=== PATIENT | female | born 1995 | race Caucasian/White ===

== ENCOUNTER 2021-09-24 00:27 | Inpatient (IN) | payer OTHER ==
[2021-09-24 02:29] LABS: INR 1.15 (0.83-1.09); PROTHROMBIN TIME (PATIENT) 13.3 SEC (9.7-13.0)
[2021-09-24 02:31] LABS: ACTIVATED PTT 37.6 SECONDS (25.2-36.5)
[2021-09-24 02:33] LABS: VENOUS BASE EXCESS -5.9 mmol/L (-2-2); VENOUS O2 SATURATION 28.8 % (70-80); VENOUS PCO2 41.6 mmHg (38-52); VENOUS PH 7.303 (7.310-7.410)
[2021-09-24 02:35] LABS: HEMOGLOBIN 7.9 GM/dL (10.7-15.3); MCH 32.3 pg (25.7-33.7); MCHC 31.7 g/dl (32.0-36.0); MEAN PLT VOLUME 6.6 fl (7.5-11.1); PLATELET COUNT 563 10^3/uL (134-434); RBC 2.46 M/mm3 (3.60-5.2); RDW 18.4 % (11.6-15.6); WHITE BLOOD COUNT 10.9 K/mm3 (4.0-10.0)
[2021-09-24 02:37] LABS: CALCIUM 9.2 mg/dL (8.5-10.1)
[2021-09-24 02:38] LABS: ADD RBC MORPHOLOGY YES
[2021-09-24 02:41] LABS: CREATININE 0.7 mg/dL (0.55-1.3)
[2021-09-24 02:43] LABS: BILIRUBIN,TOTAL 4.7 mg/dL (0.2-1)
[2021-09-24] MEDS ORDERED: SODIUM CHLORIDE 0.9% 500 ML INFUS.BAG IV ONE (02:49)
[2021-09-24 03:03] LABS: ANISOCYTOSIS 2+; MACROCYTOSIS 1+; OVALOCYTE 1+; TEAR DROP CELLS 1+
[2021-09-24 03:16] LABS: LACTIC ACID 8.1 mmol/L (0.4-2.0)
[2021-09-24 03:32] VITALS: BMI 44.2
[2021-09-24 03:36] LABS: BILIRUBIN,DIRECT 2.9 mg/dL (0.0-0.2)
[2021-09-24] MEDS ORDERED: ALBUTEROL SO4 2.5/IPRATROPIUM 0.5 INH SOL 3 ML VIAL.NEB. NEB ONE (04:11)
[2021-09-24] MEDS ORDERED: chlordiazePOXIDE HCL 25 MG CAPSULE PO ONE (06:11)
[2021-09-24] MEDS ORDERED: chlordiazePOXIDE HCL 25 MG CAPSULE ONE (06:17)
[2021-09-24 07:07] LABS: LACTIC ACID 6.5 mmol/L (0.4-2.0)
[2021-09-24 07:58] LABS: PH,URINE 6.5 (5.0-8.0); URINE APPEARANCE CLEAR; URINE BILIRUBIN MODERATE (NEGATIVE); URINE COLOR DK YELLOW; URINE GLUCOSE (UA) 1+ (NEGATIVE); URINE KETONE NEGATIVE (NEGATIVE)
[2021-09-24 07:59] LABS: URINE LEUK ESTERASE NEGATIVE (NEGATIVE); URINE NITRITE NEGATIVE (NEGATIVE); URINE PROTEIN TRACE (NEGATIVE)
[2021-09-24 08:50] LABS: METHADONE, UR NEGATIVE (NEGATIVE); OPIATES, URI NEGATIVE (NEGATIVE); PHENCYCLIDINE,URINE NEGATIVE (NEGATIVE); URINE BARBITURATES NEGATIVE (NEGATIVE); URINE BENZODIAZEPINES NEGATIVE (NEGATIVE)
[2021-09-24 08:53] LABS: COCAINE, UR NEGATIVE (NEGATIVE); URINE AMPHETAMINES NEGATIVE (NEGATIVE)
[2021-09-24] MEDS ORDERED: LORazepam 1 MG TABLET PO PRN (09:08)
[2021-09-24] MEDS: FOLIC ACID 1 MG TABLET (FP) PO SCH (09:32)
[2021-09-24] MEDS: THIAMINE HCL 100 MG TABLET (FP) PO SCH (09:32)
[2021-09-24] MEDS: SODIUM CHLORIDE 1,000 ML IV SCH (09:35)
[2021-09-24] MEDS ORDERED: PrednisoLONE 15 MG/5 ML UNIT-DOSE CUP PO SCH (10:00)
[2021-09-24] MEDS: ENOXAPARIN NA (PORCINE) 40 MG/0.4 ML DISP.SYRIN SQ SCH (10:55)
[2021-09-24] MEDS: LORazepam 1 MG TABLET PO SCH ×3 (11:49→22:58)
[2021-09-24 12:20] LABS: ALBUMIN 2.7 g/dl (3.4-5.0)
[2021-09-24 12:22] LABS: BILIRUBIN,DIRECT 3.3 mg/dL (0.0-0.2)
[2021-09-24 12:24] LABS: BILIRUBIN,TOTAL 4.3 mg/dL (0.2-1)
[2021-09-24 12:25] LABS: TOT PROT 7.1 g/dl (6.4-8.2)
[2021-09-24 14:31] LABS: INR 1.29 (0.83-1.09); PROTHROMBIN TIME (PATIENT) 14.9 SEC (9.7-13.0)
[2021-09-24 14:43] LABS: ALBUMIN 2.5 g/dl (3.4-5.0)
[2021-09-24 14:46] LABS: BILIRUBIN,DIRECT 3.3 mg/dL (0.0-0.2)
[2021-09-24 14:48] LABS: BILIRUBIN,TOTAL 4.2 mg/dL (0.2-1); TOT PROT 6.4 g/dl (6.4-8.2)
[2021-09-25] MEDS: LORazepam 1 MG TABLET PO SCH ×4 (05:36→22:25)
[2021-09-25 08:44] LABS: HEMATOCRIT 20.6 % (32.4-45.2); MCH 32.6 pg (25.7-33.7); MCHC 31.8 g/dl (32.0-36.0); MEAN CELL VOLUME 102.5 fl (80-96); MEAN PLT VOLUME 6.6 fl (7.5-11.1); PLATELET COUNT 425 10^3/uL (134-434); RBC 2.01 M/mm3 (3.60-5.2); RDW 18.7 % (11.6-15.6); WHITE BLOOD COUNT 10.3 K/mm3 (4.0-10.0)
[2021-09-25 09:13] LABS: CALCIUM 8.4 mg/dL (8.5-10.1)
[2021-09-25 09:14] LABS: ALBUMIN 2.5 g/dl (3.4-5.0); BLOOD UREA NITROGEN 7.8 mg/dL (7-18)
[2021-09-25 09:17] LABS: CREATININE 0.5 mg/dL (0.55-1.3)
[2021-09-25 09:18] LABS: TOT PROT 6.4 g/dl (6.4-8.2)
[2021-09-25 09:48] LABS: HEMOGLOBIN 6.5 GM/dL (10.7-15.3)
[2021-09-25 10:09] LABS: RETICULOCYTES 3.62 % (0.5-1.5)
[2021-09-25] MEDS: FOLIC ACID 1 MG TABLET (FP) PO SCH (12:15)
[2021-09-25] MEDS: THIAMINE HCL 100 MG TABLET (FP) PO SCH (12:15)
[2021-09-25] MEDS: ENOXAPARIN NA (PORCINE) 40 MG/0.4 ML DISP.SYRIN SQ SCH (12:15)
[2021-09-25 13:38] LABS: INR 1.16 (0.83-1.09); PROTHROMBIN TIME (PATIENT) 13.4 SEC (9.7-13.0)
[2021-09-25 14:00] LABS: LACTIC ACID 2.8 mmol/L (0.4-2.0)
[2021-09-25] MEDS: SODIUM CHLORIDE 1,000 ML IV SCH (18:04)
[2021-09-25 21:58] LABS: HEMATOCRIT 24.1 % (32.4-45.2); HEMOGLOBIN 7.8 GM/dL (10.7-15.3); MCH 32.4 pg (25.7-33.7); MCHC 32.4 g/dl (32.0-36.0); MEAN CELL VOLUME 99.8 fl (80-96); MEAN PLT VOLUME 6.6 fl (7.5-11.1); PLATELET COUNT 405 10^3/uL (134-434); RBC 2.41 M/mm3 (3.60-5.2); RDW 19.5 % (11.6-15.6); WHITE BLOOD COUNT 10.4 K/mm3 (4.0-10.0)
[2021-09-25 22:45] LABS: ANISOCYTOSIS 2+
[2021-09-25 22:46] LABS: PLATELET ESTIMATE ADEQUATE
[2021-09-26] MEDS: LORazepam 1 MG TABLET PO SCH ×4 (05:53→22:36)
[2021-09-26 07:27] LABS: HEMATOCRIT 22.5 % (32.4-45.2); HEMOGLOBIN 7.2 GM/dL (10.7-15.3); MCH 31.9 pg (25.7-33.7); MCHC 32.2 g/dl (32.0-36.0); MEAN CELL VOLUME 99.2 fl (80-96); MEAN PLT VOLUME 6.6 fl (7.5-11.1); PLATELET COUNT 358 10^3/uL (134-434); RBC 2.27 M/mm3 (3.60-5.2); RDW 19.5 % (11.6-15.6); WHITE BLOOD COUNT 11.9 K/mm3 (4.0-10.0)
[2021-09-26 07:39] LABS: ALBUMIN 2.6 g/dl (3.4-5.0); BLOOD UREA NITROGEN 8.8 mg/dL (7-18); CALCIUM 8.2 mg/dL (8.5-10.1); MAGNESIUM 2.3 mg/dL (1.8-2.4)
[2021-09-26 07:42] LABS: CREATININE 0.5 mg/dL (0.55-1.3); PHOSPHOROUS 2.4 mg/dL (2.5-4.9); TOT PROT 6.7 g/dl (6.4-8.2)
[2021-09-26] MEDS: SODIUM CHLORIDE 1,000 ML IV SCH (08:45)
[2021-09-26] MEDS: FOLIC ACID 1 MG TABLET (FP) PO SCH (09:03)
[2021-09-26] MEDS: THIAMINE HCL 100 MG TABLET (FP) PO SCH (09:03)
[2021-09-26 10:18] LABS: ANISOCYTOSIS 1+; MACROCYTOSIS 1+; TARGET CELLS 1+
[2021-09-26] MEDS ORDERED: NAPH,MB-DB/K PH,MBDB POWDER PACKET PO ONE (11:16)
[2021-09-26] MEDS ORDERED: POTASSIUM CHLORIDE ORAL LIQUID 20 MEQ/15 ML PO ONE (11:16)
[2021-09-26] MEDS: CYANOCOBALAMIN (VITAMIN B-12) 1000 MCG/1 ML VIAL IM SCH (12:15)
[2021-09-26 14:56] LABS: BILIRUBIN,DIRECT 3.8 mg/dL (0.0-0.2)
[2021-09-26 16:34] LABS: HEMOGLOBIN 7.5 GM/dL (10.7-15.3); MCH 32.4 pg (25.7-33.7); MCHC 32.7 g/dl (32.0-36.0); MEAN PLT VOLUME 6.3 fl (7.5-11.1); PLATELET COUNT 329 10^3/uL (134-434); RBC 2.32 M/mm3 (3.60-5.2); RDW 19.8 % (11.6-15.6); WHITE BLOOD COUNT 10.3 K/mm3 (4.0-10.0)
[2021-09-26 16:39] LABS: ADD RBC MORPHOLOGY YES
[2021-09-26 17:45] LABS: ANISOCYTOSIS 2+; MACROCYTOSIS 2+; TEAR DROP CELLS 1+
[2021-09-27] MEDS ORDERED: LORazepam 0.5 MG TABLET PO PRN
[2021-09-27] MEDS: SODIUM CHLORIDE 1,000 ML IV SCH ×2 (00:26→07:46)
[2021-09-27] MEDS: LORazepam 0.5 MG TABLET PO SCH ×4 (04:48→22:50)
[2021-09-27 07:19] LABS: HEMATOCRIT 21.6 % (32.4-45.2); MCH 31.8 pg (25.7-33.7); MCHC 32.1 g/dl (32.0-36.0); MEAN CELL VOLUME 99.1 fl (80-96); MEAN PLT VOLUME 6.3 fl (7.5-11.1); PLATELET COUNT 308 10^3/uL (134-434); RBC 2.18 M/mm3 (3.60-5.2); RDW 19.7 % (11.6-15.6); WHITE BLOOD COUNT 10.4 K/mm3 (4.0-10.0)
[2021-09-27 07:22] LABS: INR 1.15 (0.83-1.09); PROTHROMBIN TIME (PATIENT) 13.3 SEC (9.7-13.0)
[2021-09-27 07:41] LABS: ALBUMIN 2.4 g/dl (3.4-5.0)
[2021-09-27 07:44] LABS: BILIRUBIN,DIRECT 3.3 mg/dL (0.0-0.2)
[2021-09-27 07:45] LABS: TOT PROT 6.2 g/dl (6.4-8.2)
[2021-09-27 07:46] LABS: BILIRUBIN,TOTAL 4.2 mg/dL (0.2-1)
[2021-09-27 07:49] LABS: ALBUMIN 2.5 g/dl (3.4-5.0); BLOOD UREA NITROGEN 7.5 mg/dL (7-18); CALCIUM 8.3 mg/dL (8.5-10.1); MAGNESIUM 2.3 mg/dL (1.8-2.4)
[2021-09-27 07:52] LABS: BILIRUBIN,DIRECT 3.3 mg/dL (0.0-0.2); CREATININE 0.4 mg/dL (0.55-1.3); PHOSPHOROUS 2.3 mg/dL (2.5-4.9)
[2021-09-27 07:53] LABS: BILIRUBIN,TOTAL 4.2 mg/dL (0.2-1)
[2021-09-27 07:54] LABS: TOT PROT 6.2 g/dl (6.4-8.2)
[2021-09-27 08:43] LABS: ANISOCYTOSIS 3+; MACROCYTOSIS 0
[2021-09-27] MEDS: CYANOCOBALAMIN (VITAMIN B-12) 1000 MCG/1 ML VIAL IM SCH (09:10)
[2021-09-27] MEDS: FOLIC ACID 1 MG TABLET (FP) PO SCH (09:10)
[2021-09-27] MEDS: THIAMINE HCL 100 MG TABLET (FP) PO SCH (09:10)
[2021-09-27] MEDS ORDERED: NAPH,MB-DB/K PH,MBDB POWDER PACKET PO ONE (10:21)
[2021-09-27 15:07] LABS: EPI CELLS 20 /uL (0-25.1); HYALINE CASTS 2 /uL (0-3.1); URINE APPEARANCE CLOUDY; URINE BILIRUBIN 3+ (NEGATIVE); URINE COLOR DK YELLOW; URINE GLUCOSE (UA) NEGATIVE (NEGATIVE); URINE KETONE NEGATIVE (NEGATIVE); URINE LEUK ESTERASE 1+ (NEGATIVE); URINE NITRITE POSITIVE (NEGATIVE); URINE PROTEIN 1+ (NEGATIVE); URINE WBC 46 /uL (0-25.8)
[2021-09-27 15:14] LABS: URINE BACTERIA 158 /uL (0-1359); URINE RBC 15 /uL (0-23.9)
[2021-09-27 16:26] LABS: BASO % 1.1 % (0-2.0); EOS % 3.8 % (0-4.5); HEMATOCRIT 22.8 % (32.4-45.2); HEMOGLOBIN 7.1 GM/dL (10.7-15.3); LYMPH % 11.8 % (8-40); MCH 31.4 pg (25.7-33.7); MCHC 31.4 g/dl (32.0-36.0); MEAN CELL VOLUME 99.9 fl (80-96); MEAN PLT VOLUME 7.3 fl (7.5-11.1); MONO % 8.9 % (3.8-10.2); NEUT % 74.4 % (42.8-82.8); RBC 2.28 M/mm3 (3.60-5.2); RDW 19.7 % (11.6-15.6); WHITE BLOOD COUNT 12.1 K/mm3 (4.0-10.0)
[2021-09-27 17:24] LABS: ANISOCYTOSIS 2+; MACROCYTOSIS 1+; TARGET CELLS 1+
[2021-09-27 17:27] LABS: PLATELET COUNT 340 10^3/uL (134-434); PLATELET ESTIMATE ADEQUATE
[2021-09-27 20:28] LABS: URIC ACID 2.8 mg/dL (2.6-7.2)
[2021-09-28] MEDS ORDERED: ALBUTEROL SO4 HFA INHALER IH PRN (04:25)
[2021-09-28] MEDS ORDERED: LORazepam 0.5 MG TABLET PO ONE (05:00)
[2021-09-28] MEDS: SODIUM CHLORIDE 1,000 ML IV SCH ×2 (05:11→09:10)
[2021-09-28 07:36] LABS: HEMATOCRIT 21.4 % (32.4-45.2); MCH 31.5 pg (25.7-33.7); MCHC 31.4 g/dl (32.0-36.0); MEAN CELL VOLUME 100.4 fl (80-96); MEAN PLT VOLUME 6.7 fl (7.5-11.1); PLATELET COUNT 324 10^3/uL (134-434); RBC 2.13 M/mm3 (3.60-5.2); RDW 19.3 % (11.6-15.6); WHITE BLOOD COUNT 12.6 K/mm3 (4.0-10.0)
[2021-09-28 07:46] LABS: HEMOGLOBIN 6.7 GM/dL (10.7-15.3)
[2021-09-28 08:08] LABS: CREATININE 0.5 mg/dL (0.55-1.3)
[2021-09-28 08:10] LABS: ALBUMIN 2.6 g/dl (3.4-5.0); TOT PROT 6.5 g/dl (6.4-8.2)
[2021-09-28 08:11] LABS: BLOOD UREA NITROGEN 5.5 mg/dL (7-18); CALCIUM 8.5 mg/dL (8.5-10.1)
[2021-09-28 08:12] LABS: MAGNESIUM 2.3 mg/dL (1.8-2.4)
[2021-09-28 08:13] LABS: BILIRUBIN,DIRECT 3.1 mg/dL (0.0-0.2); PHOSPHOROUS 2.4 mg/dL (2.5-4.9)
[2021-09-28] MEDS ORDERED: DEXTROSE 5%-WATER 100 ML IVPB ONE (08:36)
[2021-09-28 08:48] LABS: ANISOCYTOSIS 2+; MACROCYTOSIS 0
[2021-09-28] MEDS ORDERED: NAPH,MB-DB/K PH,MBDB POWDER PACKET PO ONE (09:00)
[2021-09-28] MEDS: CEFTRIAXONE 2 GM in DEXTROSE 5%-WATER 2 GM/100 ML BAG IVPB SCH (09:05)
[2021-09-28] MEDS: FOLIC ACID 1 MG TABLET (FP) PO SCH (09:10)
[2021-09-28] MEDS: THIAMINE HCL 100 MG TABLET (FP) PO SCH (09:10)
[2021-09-28 09:31] LABS: INR 1.15 (0.83-1.09); PROTHROMBIN TIME (PATIENT) 13.2 SEC (9.7-13.0)
[2021-09-28] MEDS: CYANOCOBALAMIN (VITAMIN B-12) 1000 MCG/1 ML VIAL IM SCH (11:08)
[2021-09-28 18:11] LABS: HEMATOCRIT 25.8 % (32.4-45.2); HEMOGLOBIN 8.2 GM/dL (10.7-15.3); MCH 31.4 pg (25.7-33.7); MCHC 31.8 g/dl (32.0-36.0); MEAN CELL VOLUME 98.5 fl (80-96); MEAN PLT VOLUME 6.7 fl (7.5-11.1); PLATELET COUNT 368 10^3/uL (134-434); RBC 2.62 M/mm3 (3.60-5.2); RDW 18.2 % (11.6-15.6); WHITE BLOOD COUNT 12.4 K/mm3 (4.0-10.0)
[2021-09-28] MEDS ORDERED: LORazepam 0.5 MG TABLET PO PRN (18:46)
[2021-09-28 19:23] LABS: ANISOCYTOSIS 2+; MACROCYTOSIS 1+; PLATELET ESTIMATE NORMAL
[2021-09-29] MEDS ORDERED: IBUPROFEN 800 MG/8 ML IJ IVPB ONE (00:02)
[2021-09-29 00:25] LABS: PHENCYCLIDINE,URINE NEGATIVE (NEGATIVE)
[2021-09-29 00:26] LABS: COCAINE, UR NEGATIVE (NEGATIVE); METHADONE, UR NEGATIVE (NEGATIVE); OPIATES, URI NEGATIVE (NEGATIVE); URINE BARBITURATES NEGATIVE (NEGATIVE)
[2021-09-29 00:48] LABS: URINE AMPHETAMINES NEGATIVE (NEGATIVE); URINE BENZODIAZEPINES POSITIVE (NEGATIVE)
[2021-09-29 08:42] LABS: HEMATOCRIT 24.7 % (32.4-45.2); MCH 31.7 pg (25.7-33.7); MCHC 32.3 g/dl (32.0-36.0); MEAN CELL VOLUME 98.1 fl (80-96); MEAN PLT VOLUME 6.7 fl (7.5-11.1); PLATELET COUNT 350 10^3/uL (134-434); RBC 2.51 M/mm3 (3.60-5.2); RDW 17.8 % (11.6-15.6); WHITE BLOOD COUNT 11.9 K/mm3 (4.0-10.0)
[2021-09-29 08:48] LABS: INR 1.16 (0.83-1.09); PROTHROMBIN TIME (PATIENT) 13.4 SEC (9.7-13.0)
[2021-09-29] MEDS ORDERED: ALBUTEROL SO4 2.5/IPRATROPIUM 0.5 INH SOL 3 ML VIAL.NEB. NEB ONE (08:55)
[2021-09-29 09:14] LABS: ALBUMIN 2.5 g/dl (3.4-5.0); CALCIUM 9.1 mg/dL (8.5-10.1); CREATININE 0.4 mg/dL (0.55-1.3)
[2021-09-29 09:16] LABS: BILIRUBIN,TOTAL 3.6 mg/dL (0.2-1); TOT PROT 6.2 g/dl (6.4-8.2)
[2021-09-29 09:17] LABS: BILIRUBIN,DIRECT 2.8 mg/dL (0.0-0.2); PHOSPHOROUS 2.8 mg/dL (2.5-4.9)
[2021-09-29 09:19] LABS: MAGNESIUM 2.4 mg/dL (1.8-2.4)
[2021-09-29] MEDS ORDERED: DEXTROSE 5%-WATER 100 ML IVPB ONE (09:25)
[2021-09-29] MEDS: THIAMINE HCL 100 MG TABLET (FP) PO SCH (09:53)
[2021-09-29] MEDS: CEFTRIAXONE 2 GM in DEXTROSE 5%-WATER 2 GM/100 ML BAG IVPB SCH (09:53)
[2021-09-29] MEDS: CYANOCOBALAMIN (VITAMIN B-12) 1000 MCG/1 ML VIAL IM SCH (09:54)
[2021-09-29] MEDS: FOLIC ACID 1 MG TABLET (FP) PO SCH (09:54)
[2021-09-29 09:57] LABS: HIV INTERPRETATION NEGATIVE (NEGATIVE)
[2021-09-29 10:17] LABS: ANISOCYTOSIS 2+; MACROCYTOSIS 0
[2021-09-29 10:50] LABS: ARTERIAL BLD GAS O2 SATURATION 95.6 % (95-98); ARTERIAL BLOOD GAS BASE EXCESS 0.7 mmol/L (-2-2); ARTERIAL BLOOD GAS PO2 74.7 mmHg (80-100); ARTERIAL BLOOD GAS pH 7.443 (7.350-7.450)
[2021-09-29 10:51] LABS: ALLENS TEST POSITIVE
[2021-09-29] MEDS ORDERED: FUROSEMIDE 40 MG/4 ML INJECTABLE VIAL IVPUSH ONE (13:19)
[2021-09-29] MEDS ORDERED: AZITHROMYCIN 250 MG TABLET PO ONE (13:19)
[2021-09-30] MEDS ORDERED: MELATONIN 5 MG TABLETS PO ONE (02:12)
[2021-09-30 06:55] LABS: HEMATOCRIT 24.8 % (32.4-45.2); HEMOGLOBIN 7.8 GM/dL (10.7-15.3); MCHC 31.4 g/dl (32.0-36.0); MEAN CELL VOLUME 98.6 fl (80-96); MEAN PLT VOLUME 7.1 fl (7.5-11.1); PLATELET COUNT 422 10^3/uL (134-434); RBC 2.51 M/mm3 (3.60-5.2); RDW 17.5 % (11.6-15.6)
[2021-09-30 07:41] LABS: ALBUMIN 2.6 g/dl (3.4-5.0); BLOOD UREA NITROGEN 7.5 mg/dL (7-18); CALCIUM 9.2 mg/dL (8.5-10.1)
[2021-09-30 07:44] LABS: CREATININE 0.4 mg/dL (0.55-1.3)
[2021-09-30 07:46] LABS: BILIRUBIN,TOTAL 3.4 mg/dL (0.2-1); TOT PROT 6.3 g/dl (6.4-8.2)
[2021-09-30] MEDS ORDERED: DEXTROSE 5%-WATER 100 ML IVPB ONE (09:27)
[2021-09-30] MEDS: CYANOCOBALAMIN (VITAMIN B-12) 1000 MCG/1 ML VIAL IM SCH (09:43)
[2021-09-30] MEDS: FOLIC ACID 1 MG TABLET (FP) PO SCH (09:43)
[2021-09-30] MEDS: AZITHROMYCIN 250 MG TABLET PO SCH (09:43)
[2021-09-30] MEDS: CEFTRIAXONE 2 GM in DEXTROSE 5%-WATER 2 GM/100 ML BAG IVPB SCH (09:43)
[2021-09-30] MEDS: THIAMINE HCL 100 MG TABLET (FP) PO SCH (09:43)
[2021-09-30 10:13] LABS: ANISOCYTOSIS 1+; MACROCYTOSIS 1+
[2021-09-30 17:10] LABS: FREE KAPPA,SERUM 13.6 mg/L (3.3-19.4)
[2021-09-30] MEDS ORDERED: FUROSEMIDE 40 MG/4 ML INJECTABLE VIAL IVPUSH ONE (17:22)
[2021-09-30] MEDS ORDERED: AMPICILLIN NA/SULBACTAM NA 3 GM in SODIUM CHLORIDE 100 ML IVPB SCH (17:30)
[2021-09-30] MEDS ORDERED: AMPICILLIN NA/SULBACTAM NA 3 GM VIAL ONE (19:05)
[2021-09-30] MEDS ORDERED: SODIUM CHLORIDE 100 ML IVPB ONE (19:05)
[2021-09-30] MEDS: AMPICILLIN NA/SULBACTAM NA 3 GM in SODIUM CHLORIDE 100 ML IVPB SCH (19:07)
[2021-10-01] MEDS ORDERED: AMPICILLIN NA/SULBACTAM NA 3 GM VIAL ONE ×4 (02:50→21:08)
[2021-10-01] MEDS ORDERED: SODIUM CHLORIDE 100 ML IVPB ONE ×4 (02:51→21:08)
[2021-10-01] MEDS: AMPICILLIN NA/SULBACTAM NA 3 GM in SODIUM CHLORIDE 100 ML IVPB SCH ×4 (02:55→21:32)
[2021-10-01 07:27] LABS: BASO % 0.8 % (0-2.0); HEMATOCRIT 25.5 % (32.4-45.2); HEMOGLOBIN 8.1 GM/dL (10.7-15.3); LYMPH % 11.5 % (8-40); MCH 31.1 pg (25.7-33.7); MCHC 31.6 g/dl (32.0-36.0); MEAN CELL VOLUME 98.4 fl (80-96); MEAN PLT VOLUME 6.8 fl (7.5-11.1); MONO % 8.1 % (3.8-10.2); NEUT % 74.6 % (42.8-82.8); PLATELET COUNT 472 10^3/uL (134-434); RBC 2.59 M/mm3 (3.60-5.2); RDW 17.6 % (11.6-15.6); WHITE BLOOD COUNT 11.7 K/mm3 (4.0-10.0)
[2021-10-01 07:44] LABS: CALCIUM 9.3 mg/dL (8.5-10.1)
[2021-10-01 07:45] LABS: ALBUMIN 2.5 g/dl (3.4-5.0); MAGNESIUM 2.5 mg/dL (1.8-2.4)
[2021-10-01 07:48] LABS: BILIRUBIN,TOTAL 2.6 mg/dL (0.2-1); CREATININE 0.5 mg/dL (0.55-1.3); PHOSPHOROUS 4.8 mg/dL (2.5-4.9)
[2021-10-01 07:50] LABS: TOT PROT 6.3 g/dl (6.4-8.2)
[2021-10-01] MEDS: AZITHROMYCIN 250 MG TABLET PO SCH (09:47)
[2021-10-01] MEDS: FOLIC ACID 1 MG TABLET (FP) PO SCH (09:47)
[2021-10-01] MEDS: THIAMINE HCL 100 MG TABLET (FP) PO SCH (09:47)
[2021-10-01] MEDS: CYANOCOBALAMIN (VITAMIN B-12) 1000 MCG/1 ML VIAL IM SCH (09:47)
[2021-10-01] MEDS ORDERED: FUROSEMIDE 40 MG/4 ML INJECTABLE VIAL IVPUSH ONE ×2 (14:00→16:30)
[2021-10-02] MEDS ORDERED: SODIUM CHLORIDE 100 ML IVPB ONE ×4 (03:04→20:34)
[2021-10-02] MEDS ORDERED: AMPICILLIN NA/SULBACTAM NA 3 GM VIAL ONE ×4 (03:04→20:34)
[2021-10-02] MEDS: AMPICILLIN NA/SULBACTAM NA 3 GM in SODIUM CHLORIDE 100 ML IVPB SCH ×4 (03:35→20:41)
[2021-10-02 08:44] LABS: HEMATOCRIT 30.6 % (32.4-45.2); HEMOGLOBIN 9.8 GM/dL (10.7-15.3); MCH 30.7 pg (25.7-33.7); MCHC 32.2 g/dl (32.0-36.0); MEAN CELL VOLUME 95.2 fl (80-96); MEAN PLT VOLUME 6.7 fl (7.5-11.1); PLATELET COUNT 528 10^3/uL (134-434); RBC 3.21 M/mm3 (3.60-5.2); RDW 17.7 % (11.6-15.6); WHITE BLOOD COUNT 13.2 K/mm3 (4.0-10.0)
[2021-10-02 08:46] LABS: INR 1.14 (0.83-1.09); PROTHROMBIN TIME (PATIENT) 13.1 SEC (9.7-13.0)
[2021-10-02 08:49] LABS: ACTIVATED PTT 37.9 SECONDS (25.2-36.5)
[2021-10-02] MEDS: THIAMINE HCL 100 MG TABLET (FP) PO SCH (09:02)
[2021-10-02] MEDS: FOLIC ACID 1 MG TABLET (FP) PO SCH (09:03)
[2021-10-02] MEDS: AZITHROMYCIN 250 MG TABLET PO SCH (09:03)
[2021-10-02] MEDS: CYANOCOBALAMIN (VITAMIN B-12) 1000 MCG/1 ML VIAL IM SCH (09:03)
[2021-10-02 09:22] LABS: CALCIUM 9.7 mg/dL (8.5-10.1)
[2021-10-02 09:24] LABS: ALBUMIN 2.8 g/dl (3.4-5.0); BLOOD UREA NITROGEN 9.6 mg/dL (7-18); MAGNESIUM 2.5 mg/dL (1.8-2.4)
[2021-10-02 09:25] LABS: TOT PROT 6.8 g/dl (6.4-8.2)
[2021-10-02 09:26] LABS: BILIRUBIN,DIRECT 1.9 mg/dL (0.0-0.2); CREATININE 0.5 mg/dL (0.55-1.3); PHOSPHOROUS 4.6 mg/dL (2.5-4.9)
[2021-10-02 09:27] LABS: BILIRUBIN,TOTAL 3.2 mg/dL (0.2-1)
[2021-10-02 09:52] LABS: ANISOCYTOSIS 1+; MACROCYTOSIS 0; PLATELET ESTIMATE INCREASED
[2021-10-02] MEDS ORDERED: FUROSEMIDE 40 MG/4 ML INJECTABLE VIAL IVPB ONE (12:07)
[2021-10-03] MEDS ORDERED: AMPICILLIN NA/SULBACTAM NA 3 GM VIAL ONE ×4 (02:42→21:02)
[2021-10-03] MEDS ORDERED: SODIUM CHLORIDE 100 ML IVPB ONE ×4 (02:42→21:03)
[2021-10-03] MEDS: AMPICILLIN NA/SULBACTAM NA 3 GM in SODIUM CHLORIDE 100 ML IVPB SCH ×4 (03:00→21:46)
[2021-10-03 07:51] LABS: BASO % 0.9 % (0-2.0); EOS % 4.7 % (0-4.5); HEMATOCRIT 32.6 % (32.4-45.2); HEMOGLOBIN 10.3 GM/dL (10.7-15.3); LYMPH % 12.5 % (8-40); MCH 30.5 pg (25.7-33.7); MCHC 31.6 g/dl (32.0-36.0); MEAN CELL VOLUME 96.7 fl (80-96); MEAN PLT VOLUME 6.6 fl (7.5-11.1); MONO % 7.3 % (3.8-10.2); NEUT % 74.6 % (42.8-82.8); PLATELET COUNT 566 10^3/uL (134-434); RBC 3.37 M/mm3 (3.60-5.2); RDW 17.8 % (11.6-15.6); WHITE BLOOD COUNT 12.3 K/mm3 (4.0-10.0)
[2021-10-03 08:14] LABS: CALCIUM 9.4 mg/dL (8.5-10.1)
[2021-10-03 08:15] LABS: ALBUMIN 2.8 g/dl (3.4-5.0); BLOOD UREA NITROGEN 10.4 mg/dL (7-18)
[2021-10-03 08:18] LABS: CREATININE 0.5 mg/dL (0.55-1.3)
[2021-10-03 08:19] LABS: BILIRUBIN,TOTAL 2.6 mg/dL (0.2-1); TOT PROT 6.9 g/dl (6.4-8.2)
[2021-10-03 08:20] LABS: BILIRUBIN,DIRECT 1.9 mg/dL (0.0-0.2)
[2021-10-03] MEDS: THIAMINE HCL 100 MG TABLET (FP) PO SCH (10:24)
[2021-10-03] MEDS: AZITHROMYCIN 250 MG TABLET PO SCH (10:24)
[2021-10-03] MEDS: FOLIC ACID 1 MG TABLET (FP) PO SCH (10:24)
[2021-10-03] MEDS ORDERED: FUROSEMIDE 40 MG/4 ML INJECTABLE VIAL IVPB ONE (13:30)
[2021-10-03 22:06] LABS: CREATININE, UR 0.53 g/L (0.30-3.00)
[2021-10-04] MEDS ORDERED: SODIUM CHLORIDE 100 ML IVPB ONE ×4 (02:40→20:38)
[2021-10-04] MEDS ORDERED: AMPICILLIN NA/SULBACTAM NA 3 GM VIAL ONE ×4 (02:40→20:38)
[2021-10-04] MEDS: AMPICILLIN NA/SULBACTAM NA 3 GM in SODIUM CHLORIDE 100 ML IVPB SCH ×4 (02:49→21:04)
[2021-10-04 08:23] LABS: INR 1.11 (0.83-1.09); PROTHROMBIN TIME (PATIENT) 12.8 SEC (9.7-13.0)
[2021-10-04 08:30] LABS: BASO % 0.7 % (0-2.0); EOS % 4.6 % (0-4.5); HEMATOCRIT 32.3 % (32.4-45.2); HEMOGLOBIN 10.2 GM/dL (10.7-15.3); LYMPH % 10.4 % (8-40); MCH 30.5 pg (25.7-33.7); MCHC 31.5 g/dl (32.0-36.0); MEAN CELL VOLUME 96.9 fl (80-96); MEAN PLT VOLUME 6.8 fl (7.5-11.1); MONO % 7.1 % (3.8-10.2); NEUT % 77.2 % (42.8-82.8); PLATELET COUNT 560 10^3/uL (134-434); RBC 3.34 M/mm3 (3.60-5.2); RDW 17.5 % (11.6-15.6); WHITE BLOOD COUNT 13.1 K/mm3 (4.0-10.0)
[2021-10-04 08:39] LABS: ALBUMIN 3.1 g/dl (3.4-5.0); BLOOD UREA NITROGEN 11.3 mg/dL (7-18); CALCIUM 9.7 mg/dL (8.5-10.1)
[2021-10-04 08:42] LABS: CREATININE 0.7 mg/dL (0.55-1.3)
[2021-10-04 08:44] LABS: BILIRUBIN,TOTAL 2.7 mg/dL (0.2-1); TOT PROT 7.3 g/dl (6.4-8.2)
[2021-10-04] MEDS: THIAMINE HCL 100 MG TABLET (FP) PO SCH (11:15)
[2021-10-04] MEDS: FOLIC ACID 1 MG TABLET (FP) PO SCH (11:15)
[2021-10-04] MEDS ORDERED: DOCUSATE SODIUM 100 MG CAPSULE (FP) PO PRN (15:01)
[2021-10-04] MEDS ORDERED: POLYETHYLENE GLYCOL (HEALTHYLAX) 3350 17 GM PACKET PO PRN (15:01)
[2021-10-04] MEDS ORDERED: IBUPROFEN 400 MG TABLET (FP) PO ONE (20:43)
[2021-10-05] MEDS ORDERED: AMPICILLIN NA/SULBACTAM NA 3 GM VIAL ONE ×3 (01:36→14:58)
[2021-10-05] MEDS ORDERED: SODIUM CHLORIDE 100 ML IVPB ONE ×3 (01:36→14:58)
[2021-10-05] MEDS: AMPICILLIN NA/SULBACTAM NA 3 GM in SODIUM CHLORIDE 100 ML IVPB SCH ×3 (06:16→15:07)
[2021-10-05 08:26] LABS: BASO % 0.7 % (0-2.0); EOS % 6.4 % (0-4.5); HEMATOCRIT 31.7 % (32.4-45.2); HEMOGLOBIN 10.3 GM/dL (10.7-15.3); LYMPH % 12.8 % (8-40); MCH 31.5 pg (25.7-33.7); MCHC 32.6 g/dl (32.0-36.0); MEAN CELL VOLUME 96.5 fl (80-96); MEAN PLT VOLUME 6.3 fl (7.5-11.1); MONO % 9.7 % (3.8-10.2); NEUT % 70.4 % (42.8-82.8); PLATELET COUNT 488 10^3/uL (134-434); RBC 3.29 M/mm3 (3.60-5.2); RDW 17.2 % (11.6-15.6)
[2021-10-05 08:35] LABS: CALCIUM 9.4 mg/dL (8.5-10.1)
[2021-10-05 08:36] LABS: ALBUMIN 2.9 g/dl (3.4-5.0); BLOOD UREA NITROGEN 10.3 mg/dL (7-18)
[2021-10-05 08:39] LABS: CREATININE 0.5 mg/dL (0.55-1.3)
[2021-10-05 08:40] LABS: BILIRUBIN,TOTAL 2.5 mg/dL (0.2-1); TOT PROT 6.6 g/dl (6.4-8.2)
[2021-10-05] MEDS: THIAMINE HCL 100 MG TABLET (FP) PO SCH (09:38)
[2021-10-05] MEDS: FOLIC ACID 1 MG TABLET (FP) PO SCH (09:38)
[2021-10-05 10:56] VITALS: BP 142/72; PULSE 108; TEMP 98
[2021-10-05] MEDS ORDERED: FUROSEMIDE 40 MG/4 ML INJECTABLE VIAL IVPB ONE (12:15)
== END 2021-10-05 17:44 | disposition home or self-care (01) | DRG 280 ==
LOC: JER 00:27 → JERBED 05:58 → J4W 08:56
PROVIDERS: ADMIT Internal Medicine; ATTEND Internal Medicine
PROC: HZ2ZZZZ Detoxification Services for Substance Abuse Treatment (ICD-10-PCS; principal; 2021-09-24)
DX: K70.10 Alcoholic hepatitis without ascites (principal); R00.0 Tachycardia, unspecified; K76.0 Fatty (change of) liver, not elsewhere classified; E87.1 Hypo-osmolality and hyponatremia; D64.9 Anemia, unspecified; E87.2 Acidosis; E66.01 Morbid (severe) obesity due to excess calories; Z68.41 Body mass index [BMI] 40.0-44.9, adult; F10.239 Alcohol dependence with withdrawal, unspecified; J45.20 Mild intermittent asthma, uncomplicated; N39.0 Urinary tract infection, site not specified; K76.9 Liver disease, unspecified; E53.8 Deficiency of other specified B group vitamins; D50.9 Iron deficiency anemia, unspecified; J96.01 Acute respiratory failure with hypoxia; R26.81 Unsteadiness on feet; B95.2 Enterococcus as the cause of diseases classified elsewhere; B96.4 Proteus (mirabilis) (morganii) as the cause of diseases classified elsewhere; R16.1 Splenomegaly, not elsewhere classified
CPT/HCPCS: 36415; 36430; 36511; 36600; 71045-TC-FY; 71046-TC-FY; 71275-TC; 74177-TC; 74178-TC; 76705-TC; 80048; 80053; 80061; 80076; 80307; 81003; 82105; 82140; 82248; 82390; 82525; 82550; 82570; 82607; 82728; 82746; 82747; 82784; 82803; 82962; 83010; 83021; 83036; 83516; 83540; 83550; 83605; 83615; 83735; 83880; 83883; 83930; 83935; 84100; 84155; 84165; 84439; 84443; 84484; 84550; 84703; 85014; 85025; 85027; 85045; 85384; 85610; 85660; 85730; 86038; 86140; 86705; 86709; 86803; 86850; 86880; 86900; 86901; 86922; 87040; 87086; 87186; 87340; 87389; 87517; 88300-TC; 93005; 93010; 93306-TC; 93970-TC; 93976; 94640; 94761; 97116-GP; 97162-GP; 99291; C9803-CS; P9016; P9058; Q9967; U0003; U0005

== ENCOUNTER 2022-01-15 12:38 | Inpatient (IN) | payer OTHER ==
[2022-01-15] MEDS ORDERED: LORazepam 2 MG/ML SDV VIAL IVPUSH ONE (17:13)
[2022-01-15 17:37] LABS: EOS % 0.4 % (0-4.5); HEMATOCRIT 38.1 % (32.4-45.2); HEMOGLOBIN 13.1 GM/dL (10.7-15.3); LYMPH % 10.8 % (8-40); MCH 31.8 pg (25.7-33.7); MCHC 34.3 g/dl (32.0-36.0); MEAN CELL VOLUME 92.7 fl (80-96); MEAN PLT VOLUME 6.7 fl (7.5-11.1); MONO % 14.8 % (3.8-10.2); PLATELET COUNT 439 10^3/uL (134-434); RBC 4.11 M/mm3 (3.60-5.2); WHITE BLOOD COUNT 12.4 K/mm3 (4.0-10.0)
[2022-01-15 17:56] LABS: CHLORIDE 75 mmol/L (98-107); SODIUM 128 mmol/L (136-145)
[2022-01-15 17:58] LABS: CALCIUM 9.5 mg/dL (8.5-10.1); GLUCOSE,RANDOM 121 mg/dL (74-106)
[2022-01-15 17:59] LABS: ALBUMIN 3.2 g/dl (3.4-5.0); BLOOD UREA NITROGEN 3.6 mg/dL (7-18); CO2 38 mmol/L (21-32); LIPASE 46 U/L (73-393); MAGNESIUM 1.3 mg/dL (1.8-2.4)
[2022-01-15 18:02] LABS: CREATININE 1.4 mg/dL (0.55-1.3); SGOT/AST 237 U/L (15-37); SGPT/ALT 85 U/L (13-61)
[2022-01-15 18:03] LABS: BILIRUBIN,TOTAL 12.8 mg/dL (0.2-1); TOT PROT 7.8 g/dl (6.4-8.2)
[2022-01-15 18:04] LABS: ALK PHOS 304 U/L (45-117)
[2022-01-15 18:05] LABS: ANION GAP 16 MMOL/L (8-16)
[2022-01-15 18:09] LABS: ACTIVATED PTT 43.7 SECONDS (25.2-36.5); INR 1.51 (0.83-1.09); PROTHROMBIN TIME (PATIENT) 17.4 SEC (9.7-13.0)
[2022-01-15 18:26] LABS: ANISOCYTOSIS 2+; PLATELET ESTIMATE INCREASED; TARGET CELLS 1+
[2022-01-15 19:52] LABS: CHLORIDE 76 mmol/L (98-107); SODIUM 129 mmol/L (136-145)
[2022-01-15 19:55] LABS: CO2 37 mmol/L (21-32); GLUCOSE,RANDOM 122 mg/dL (74-106)
[2022-01-15 19:57] LABS: CREATININE 1.4 mg/dL (0.55-1.3)
[2022-01-15 20:07] LABS: ANION GAP 17 MMOL/L (8-16); BLOOD UREA NITROGEN 2.8 mg/dL (7-18)
[2022-01-15] MEDS ORDERED: SODIUM CHLORIDE 500 ML IV STA ×2 (20:11→21:57)
[2022-01-15] MEDS ORDERED: POTASSIUM CHLORIDE TABS 20 MEQ TABLET.ER (FP) PO ONE ×2 (20:13→20:26)
[2022-01-15] MEDS ORDERED: KCL 10 MEQ IVPB 30 MEQ/300 ML INFUS.BAG IVPB ONE (20:27)
[2022-01-15] MEDS ORDERED: MAGNESIUM SULFATE IN WATER 2 GM/50 ML IVPB IVPB ONE (20:27)
[2022-01-15] MEDS: KCL 10 MEQ IVPB 10 MEQ/100 ML INFUS.BAG IVPB SCH ×3 (20:43→23:15)
[2022-01-15 22:04] LABS: CHLORIDE 79 mmol/L (98-107); SODIUM 129 mmol/L (136-145)
[2022-01-15 22:05] LABS: CALCIUM 8.4 mg/dL (8.5-10.1)
[2022-01-15 22:06] LABS: BLOOD UREA NITROGEN 3.9 mg/dL (7-18); CO2 36 mmol/L (21-32); GLUCOSE,RANDOM 108 mg/dL (74-106); MAGNESIUM 2.4 mg/dL (1.8-2.4)
[2022-01-15 22:08] LABS: CREATININE 1.2 mg/dL (0.55-1.3)
[2022-01-15 22:30] LABS: ANION GAP 13 MMOL/L (8-16)
[2022-01-15] MEDS ORDERED: POTASSIUM CHLORIDE ORAL LIQUID 20 MEQ/15 ML PO ONE (23:42)
[2022-01-16] MEDS ORDERED: POTASSIUM CHLORIDE ORAL LIQUID 20 MEQ/15 ML ONE
[2022-01-16] MEDS ORDERED: LORazepam 1 MG TABLET PO PRN (00:28)
[2022-01-16] MEDS ORDERED: POTASSIUM CHLORIDE TABS 10 MEQ TABLET.ER (FP) PO ONE (00:31)
[2022-01-16] MEDS ORDERED: THIAMINE HCL 200 MG/2 ML VIAL IVPB ONE (01:07)
[2022-01-16] MEDS ORDERED: THIAMINE HCL 200 MG/2 ML VIAL ONE (02:30)
[2022-01-16] MEDS ORDERED: HEPARIN NA (PORCINE) 5,000 UNITS/ML 1ML VIAL SQ SCH (03:30)
[2022-01-16] MEDS ORDERED: HEPARIN NA (PORCINE) 5,000 UNITS/ML 1ML VIAL ONE ×3 (03:39→14:11)
[2022-01-16] MEDS ORDERED: KCL 10 MEQ IVPB 30 MEQ/300 ML INFUS.BAG IVPB ONE (03:39)
[2022-01-16] MEDS: HEPARIN NA (PORCINE) 5,000 UNITS/ML 1ML VIAL SQ SCH ×4 (03:50→21:55)
[2022-01-16] MEDS: KCL 10 MEQ IVPB 10 MEQ/100 ML INFUS.BAG IVPB SCH ×5 (03:50→15:45)
[2022-01-16 03:54] LABS: BLOOD UREA NITROGEN 3.7 mg/dL (7-18); CALCIUM 8.2 mg/dL (8.5-10.1)
[2022-01-16 03:57] LABS: CREATININE 1.1 mg/dL (0.55-1.3)
[2022-01-16 05:24] LABS: URINE APPEARANCE CLOUDY
[2022-01-16 05:30] LABS: URINE COLOR DK YELLOW; URINE GLUCOSE (UA) NEGATIVE (NEGATIVE)
[2022-01-16 05:31] LABS: PH,URINE 5.5 (5.0-8.0); URINE BILIRUBIN 2+ (NEGATIVE); URINE KETONE NEGATIVE (NEGATIVE); URINE PROTEIN 2+ (NEGATIVE)
[2022-01-16 05:32] LABS: EPI CELLS 25.7 /uL (0-25.1); HYALINE CASTS 42.71 /uL (0-3.1); URINE NITRITE POSITIVE (NEGATIVE); URINE RBC 26.3 /uL (0-23.9)
[2022-01-16 05:33] LABS: URINE BACTERIA 1489.7 /uL (0-1359); URINE LEUK ESTERASE 1+ (NEGATIVE)
[2022-01-16] MEDS ORDERED: POTASSIUM CHLORIDE TABS 20 MEQ TABLET.ER (FP) PO ONE ×3 (05:54→18:42)
[2022-01-16] MEDS: POTASSIUM CHLORIDE TABS 10 MEQ TABLET.ER (FP) PO SCH ×4 (06:05→23:08)
[2022-01-16] MEDS ORDERED: PIPERACILLIN/TAZOB 3.375 GM 3.375 GM in DEXTROSE 5%-WATER - 50 ML IVPB SCH (10:00)
[2022-01-16] MEDS ORDERED: PIPERACILLIN/TAZOB 3.375 GM 3.375 GM/50 ML BAG IVPB ONE ×2 (11:54→18:43)
[2022-01-16] MEDS ORDERED: THIAMINE HCL 100 MG TABLET (FP) ONE (11:54)
[2022-01-16] MEDS: THIAMINE HCL 100 MG TABLET (FP) PO SCH (11:56)
[2022-01-16] MEDS: PIPERACILLIN/TAZOB 3.375 GM 3.375 GM in DEXTROSE 5%-WATER - 50 ML IVPB SCH ×2 (11:56→18:47)
[2022-01-16 12:52] LABS: ANION GAP 11 MMOL/L (8-16); BLOOD UREA NITROGEN 3.2 mg/dL (7-18); CHLORIDE 90 mmol/L (98-107); CO2 33 mmol/L (21-32); GLUCOSE,RANDOM 102 mg/dL (74-106); MAGNESIUM 2.1 mg/dL (1.8-2.4); SODIUM 134 mmol/L (136-145)
[2022-01-16] MEDS ORDERED: KCL 10 MEQ IVPB 10 MEQ/100 ML INFUS.BAG IVPB ONE ×2 (13:30→14:12)
[2022-01-16] MEDS ORDERED: CEFTRIAXONE 1 GM/50 ML BAG ONE (13:30)
[2022-01-16] MEDS: CEFTRIAXONE 1 GM in DEXTROSE 5%-WATER - 50 ML IVPB SCH (13:32)
[2022-01-16] MEDS ORDERED: POTASSIUM PHOSPHATE 30 MM in SODIUM CHLORIDE 500 ML IVPB ONE (14:00)
[2022-01-16] MEDS ORDERED: NAPH,MB-DB/K PH,MBDB POWDER PACKET ONE ×2 (14:11→15:46)
[2022-01-16] MEDS: NAPH,MB-DB/K PH,MBDB POWDER PACKET PO SCH ×3 (14:18→21:55)
[2022-01-16] MEDS ORDERED: LORazepam 1 MG TABLET ONE (15:03)
[2022-01-16 15:19] LABS: BILIRUBIN,DIRECT 9.4 mg/dL (0.0-0.2); SGOT/AST 199 U/L (15-37); SGPT/ALT 62 U/L (13-61)
[2022-01-16 15:21] LABS: BILIRUBIN,TOTAL 11.8 mg/dL (0.2-1); TOT PROT 6.4 g/dl (6.4-8.2)
[2022-01-16 15:37] LABS: ALBUMIN 2.5 g/dl (3.4-5.0); ALK PHOS 250 U/L (45-117)
[2022-01-16 17:55] LABS: LACTIC ACID 2.2 mmol/L (0.4-2.0)
[2022-01-16] MEDS ORDERED: LORazepam 1 MG TABLET PO SCH (23:00)
[2022-01-16] MEDS ORDERED: LORazepam 2 MG TABLET PO SCH (23:00)
[2022-01-16] MEDS: LORazepam 1 MG TABLET PO SCH (23:09)
[2022-01-17] MEDS: LORazepam 1 MG TABLET PO SCH ×4 (06:02→23:00)
[2022-01-17] MEDS: POTASSIUM CHLORIDE TABS 10 MEQ TABLET.ER (FP) PO SCH ×4 (06:02→23:01)
[2022-01-17] MEDS: NAPH,MB-DB/K PH,MBDB POWDER PACKET PO SCH ×3 (06:02→21:54)
[2022-01-17] MEDS: HEPARIN NA (PORCINE) 5,000 UNITS/ML 1ML VIAL SQ SCH ×3 (06:02→21:54)
[2022-01-17 09:40] LABS: MCH 32.7 pg (25.7-33.7); MCHC 34.5 g/dl (32.0-36.0); MEAN CELL VOLUME 94.7 fl (80-96); MEAN PLT VOLUME 6.6 fl (7.5-11.1); PLATELET COUNT 293 10^3/uL (134-434); RBC 3.38 M/mm3 (3.60-5.2); WHITE BLOOD COUNT 10.5 K/mm3 (4.0-10.0)
[2022-01-17 09:41] LABS: INR 1.56 (0.83-1.09)
[2022-01-17] MEDS ORDERED: ALBUTEROL SO4 2.5/IPRATROPIUM 0.5 INH SOL 3 ML VIAL.NEB. NEB PRN (09:46)
[2022-01-17] MEDS: SODIUM CHLORIDE 1,000 ML IV SCH (10:23)
[2022-01-17] MEDS: THIAMINE HCL 100 MG TABLET (FP) PO SCH (10:24)
[2022-01-17] MEDS: CEFTRIAXONE 1 GM in DEXTROSE 5%-WATER - 50 ML IVPB SCH (10:24)
[2022-01-17 20:08] LABS: HEMATOCRIT 31.8 % (32.4-45.2); MCH 33.1 pg (25.7-33.7); MCHC 34.5 g/dl (32.0-36.0); MEAN CELL VOLUME 95.9 fl (80-96); MEAN PLT VOLUME 6.6 fl (7.5-11.1); PLATELET COUNT 292 10^3/uL (134-434); RBC 3.32 M/mm3 (3.60-5.2); WHITE BLOOD COUNT 10.4 K/mm3 (4.0-10.0)
[2022-01-17 20:15] LABS: CHLORIDE 100 mmol/L (98-107); SODIUM 138 mmol/L (136-145)
[2022-01-17 20:17] LABS: ALBUMIN 2.4 g/dl (3.4-5.0); ANION GAP 11 MMOL/L (8-16); CALCIUM 7.5 mg/dL (8.5-10.1); CO2 26 mmol/L (21-32)
[2022-01-17 20:18] LABS: BLOOD UREA NITROGEN 3.9 mg/dL (7-18); GLUCOSE,RANDOM 109 mg/dL (74-106); MAGNESIUM 1.6 mg/dL (1.8-2.4)
[2022-01-17 20:21] LABS: SGOT/AST 180 U/L (15-37); SGPT/ALT 52 U/L (13-61)
[2022-01-17 20:22] LABS: BILIRUBIN,TOTAL 12.4 mg/dL (0.2-1); TOT PROT 5.9 g/dl (6.4-8.2)
[2022-01-17 20:27] LABS: PHOSPHOROUS 0.6 mg/dL (2.5-4.9)
[2022-01-17] MEDS ORDERED: MAGNESIUM SULF 50% (8.12 MEQ/2 ML-1 GM VIAL) IVPB ONE (21:13)
[2022-01-17 21:33] LABS: ALK PHOS 211 U/L (45-117); PHOSPHOROUS 0.6 mg/dL (2.5-4.9)
[2022-01-17 22:13] LABS: ANISOCYTOSIS 1+; MACROCYTOSIS 0
[2022-01-18] MEDS: LORazepam 1 MG TABLET PO SCH ×4 (05:54→23:06)
[2022-01-18] MEDS: POTASSIUM CHLORIDE TABS 10 MEQ TABLET.ER (FP) PO SCH ×2 (05:54→11:19)
[2022-01-18] MEDS: HEPARIN NA (PORCINE) 5,000 UNITS/ML 1ML VIAL SQ SCH ×3 (05:54→21:29)
[2022-01-18] MEDS: NAPH,MB-DB/K PH,MBDB POWDER PACKET PO SCH ×2 (05:54→21:30)
[2022-01-18] MEDS: THIAMINE HCL 100 MG TABLET (FP) PO SCH (09:53)
[2022-01-18] MEDS: SODIUM CHLORIDE 1,000 ML IV SCH (09:53)
[2022-01-18] MEDS: CEFTRIAXONE 1 GM in DEXTROSE 5%-WATER - 50 ML IVPB SCH (09:53)
[2022-01-18] MEDS ORDERED: POTASSIUM PHOSPHATE 15 MM in SODIUM CHLORIDE 250 ML IVPB ONE (11:34)
[2022-01-18 12:38] LABS: HEMATOCRIT 31.7 % (32.4-45.2); HEMOGLOBIN 10.6 GM/dL (10.7-15.3); MCH 31.9 pg (25.7-33.7); MCHC 33.4 g/dl (32.0-36.0); MEAN CELL VOLUME 95.6 fl (80-96); PLATELET COUNT 318 10^3/uL (134-434); RBC 3.32 M/mm3 (3.60-5.2); WHITE BLOOD COUNT 12.8 K/mm3 (4.0-10.0)
[2022-01-18 12:43] LABS: INR 1.64 (0.83-1.09); PROTHROMBIN TIME (PATIENT) 18.9 SEC (9.7-13.0)
[2022-01-18] MEDS ORDERED: TRIMETHOBENZAMIDE HCL 200MG/2ML INJ IM ONE (12:53)
[2022-01-18 12:59] LABS: ANISOCYTOSIS 1+; BLOOD UREA NITROGEN 3.3 mg/dL (7-18); CALCIUM 7.4 mg/dL (8.5-10.1); MACROCYTOSIS 1+
[2022-01-18 13:02] LABS: ALBUMIN 2.2 g/dl (3.4-5.0); MAGNESIUM 2.2 mg/dL (1.8-2.4)
[2022-01-18 13:04] LABS: CREATININE 0.6 mg/dL (0.55-1.3)
[2022-01-18 13:06] LABS: BILIRUBIN,TOTAL 13.3 mg/dL (0.2-1); TOT PROT 5.6 g/dl (6.4-8.2)
[2022-01-18 13:38] LABS: LACTIC ACID 2.7 mmol/L (0.4-2.0)
[2022-01-18] MEDS ORDERED: ALBUTEROL SO4 2.5/IPRATROPIUM 0.5 INH SOL 3 ML VIAL.NEB. NEB PRN (16:53)
[2022-01-18] MEDS ORDERED: LORazepam 1 MG TABLET PO PRN (16:53)
[2022-01-18] MEDS ORDERED: SODIUM PHOSPHATE - 15 MM in SODIUM CHLORIDE 250 ML IVPB ONE (18:00)
[2022-01-18] MEDS: POTASSIUM CHLORIDE TABS 20 MEQ TABLET.ER (FP) PO SCH (20:19)
[2022-01-18 21:42] VITALS: RESP 20
[2022-01-18 23:59] VITALS: BMI 42.8
[2022-01-19] MEDS ORDERED: LORazepam 0.5 MG TABLET PO PRN ×2
[2022-01-19] MEDS: POTASSIUM CHLORIDE TABS 20 MEQ TABLET.ER (FP) PO SCH ×4 (01:05→17:03)
[2022-01-19] MEDS ORDERED: LORazepam 0.5 MG TABLET PO SCH (05:00)
[2022-01-19] MEDS: LORazepam 0.5 MG TABLET PO SCH ×4 (06:31→22:03)
[2022-01-19] MEDS: NAPH,MB-DB/K PH,MBDB POWDER PACKET PO SCH ×3 (06:32→22:03)
[2022-01-19] MEDS: HEPARIN NA (PORCINE) 5,000 UNITS/ML 1ML VIAL SQ SCH ×3 (06:32→22:03)
[2022-01-19] MEDS ORDERED: LEVOTHYROXINE NA 25 MCG TABLET (FP) PO SCH (07:00)
[2022-01-19 09:28] LABS: HEMATOCRIT 30.8 % (32.4-45.2); HEMOGLOBIN 10.5 GM/dL (10.7-15.3); MCH 33.3 pg (25.7-33.7); MCHC 33.9 g/dl (32.0-36.0); MEAN CELL VOLUME 98.2 fl (80-96); MEAN PLT VOLUME 6.8 fl (7.5-11.1); PLATELET COUNT 310 10^3/uL (134-434); RBC 3.14 M/mm3 (3.60-5.2); RDW 21.6 % (11.6-15.6); WHITE BLOOD COUNT 12.8 K/mm3 (4.0-10.0)
[2022-01-19 09:29] LABS: INR 1.6 (0.83-1.09); PROTHROMBIN TIME (PATIENT) 18.5 SEC (9.7-13.0)
[2022-01-19 09:54] LABS: ALBUMIN 2.3 g/dl (3.4-5.0); CALCIUM 7.7 mg/dL (8.5-10.1)
[2022-01-19 09:55] LABS: BLOOD UREA NITROGEN 3.9 mg/dL (7-18)
[2022-01-19 09:57] LABS: CREATININE 0.6 mg/dL (0.55-1.3)
[2022-01-19 09:59] LABS: BILIRUBIN,TOTAL 14.2 mg/dL (0.2-1); TOT PROT 5.8 g/dl (6.4-8.2)
[2022-01-19] MEDS ORDERED: CEFTRIAXONE 1 GM in DEXTROSE 5%-WATER - 50 ML IVPB SCH (10:00)
[2022-01-19] MEDS ORDERED: THIAMINE HCL 100 MG TABLET (FP) PO SCH (10:00)
[2022-01-19 10:56] LABS: ANISOCYTOSIS 2+; MACROCYTOSIS 2+
[2022-01-19 16:07] VITALS: BP 99/56; PULSE 108; TEMP 98.8
[2022-01-19 23:09] LABS: PHOSPHOROUS 1.4 mg/dL (2.5-4.9)
[2022-01-20] MEDS: POTASSIUM CHLORIDE TABS 20 MEQ TABLET.ER (FP) PO SCH (00:47)
[2022-01-20] MEDS ORDERED: LORazepam 0.5 MG TABLET PO ONE ×2 (05:00)
== END 2022-01-20 00:45 | disposition short-term general hospital (02) | DRG 280 ==
LOC: JER 12:38 → JERBED 20:41 → J4W 01-16 20:12 → J8W 01-18 16:49
PROVIDERS: ADMIT Internal Medicine; ATTEND Nurse Practitioner Family
PROC: HZ2ZZZZ Detoxification Services for Substance Abuse Treatment (ICD-10-PCS; principal; 2022-01-15)
DX: K70.10 Alcoholic hepatitis without ascites (principal); E66.01 Morbid (severe) obesity due to excess calories; Z68.41 Body mass index [BMI] 40.0-44.9, adult; R16.0 Hepatomegaly, not elsewhere classified; J45.909 Unspecified asthma, uncomplicated; N17.9 Acute kidney failure, unspecified; E87.1 Hypo-osmolality and hyponatremia; E87.6 Hypokalemia; D72.829 Elevated white blood cell count, unspecified; F10.139 Alcohol abuse with withdrawal, unspecified; N39.0 Urinary tract infection, site not specified; K76.9 Liver disease, unspecified; E83.42 Hypomagnesemia; R00.0 Tachycardia, unspecified; E83.39 Other disorders of phosphorus metabolism; D64.9 Anemia, unspecified; R14.0 Abdominal distension (gaseous); E03.8 Other specified hypothyroidism
CPT/HCPCS: 36415; 71046-TC-FY; 74177-TC; 74178-TC; 76775-TC; 80048; 80053; 80061; 80076; 81003; 82103; 82105; 82140; 82550; 82553; 82570; 82607; 82746; 82962; 83036; 83605; 83690; 83735; 84100; 84133; 84300; 84439; 84443; 84481; 84484; 84703; 85025; 85027; 85610; 85730; 87040; 87086; 87186; 93005; 93010; 94761; 99291; C9803-CS; J1644; Q9967; U0003; U0005

== ENCOUNTER 2022-05-11 13:33 | Emergency (ER) | payer OTHER ==
[2022-05-11 13:56] VITALS: BMI 38.3
[2022-05-11] MEDS ORDERED: ONDANSETRON 4 MG/2 ML VIAL IVPUSH ONE (15:07)
[2022-05-11] MEDS ORDERED: LACTATED RINGERS SOLUTION 1000 ML INFUS.BAG IV ONE ×3 (15:07→23:04)
[2022-05-11] MEDS ORDERED: MAG HYDROX/AL HYDROX/SIMETH 30 ML UNIT-DOSE CUP PO ONE (15:10)
[2022-05-11] MEDS ORDERED: FAMOTIDINE 20 MG/50 ML IVPB 20 MG/50 ML MG IVPB ONE ×2 (15:10→15:50)
[2022-05-11] MEDS ORDERED: THIAMINE HCL 200 MG/2 ML VIAL IVPB ONE (15:22)
[2022-05-11] MEDS ORDERED: LORazepam 2 MG/ML SDV VIAL IVPUSH ONE ×3 (15:30→16:33)
[2022-05-11] MEDS ORDERED: THIAMINE HCL 200 MG/2 ML VIAL ONE (15:49)
[2022-05-11] MEDS ORDERED: ONDANSETRON 4 MG/2 ML VIAL ONE (15:50)
[2022-05-11] MEDS ORDERED: MAG HYDROX/AL HYDROX/SIMETH 30 ML UNIT-DOSE CUP ONE (15:50)
[2022-05-11 16:05] LABS: HEMATOCRIT 31.4 % (32.4-45.2); HEMOGLOBIN 10.6 GM/dL (10.7-15.3); MCH 33.5 pg (25.7-33.7); MCHC 33.6 g/dl (32.0-36.0); MEAN CELL VOLUME 99.5 fl (80-96); PLATELET COUNT 281 10^3/uL (134-434); RBC 3.16 M/mm3 (3.60-5.2); RDW 16.6 % (11.6-15.6); WHITE BLOOD COUNT 14.9 K/mm3 (4.0-10.0)
[2022-05-11 16:15] LABS: CHLORIDE 79 mmol/L (98-107); SODIUM 129 mmol/L (136-145)
[2022-05-11 16:18] LABS: ALBUMIN 2.8 g/dl (3.4-5.0); ANION GAP 27 MMOL/L (8-16); BLOOD UREA NITROGEN 27.8 mg/dL (7-18); CALCIUM 7.7 mg/dL (8.5-10.1); CO2 23 mmol/L (21-32); GLUCOSE,RANDOM 104 mg/dL (74-106); LIPASE 89 U/L (73-393)
[2022-05-11 16:21] LABS: SGOT/AST 929 U/L (15-37); SGPT/ALT 133 U/L (13-61)
[2022-05-11 16:24] LABS: ALK PHOS 167 U/L (45-117)
[2022-05-11 16:28] LABS: VENOUS BASE EXCESS 0.9 mmol/L (-2-2); VENOUS O2 SATURATION 40.7 % (70-80); VENOUS PCO2 41.3 mmHg (38-52); VENOUS PH 7.41 (7.310-7.410)
[2022-05-11 16:36] LABS: BILIRUBIN,TOTAL 26.9 mg/dL (0.2-1); TOT PROT 6.6 g/dl (6.4-8.2)
[2022-05-11 16:56] LABS: INR 1.94 (0.83-1.09); PROTHROMBIN TIME (PATIENT) 22.5 SEC (9.7-13.0)
[2022-05-11] MEDS ORDERED: MAGNESIUM SULF 50% (8.12 MEQ/2 ML-1 GM VIAL) IVPB ONE (19:11)
[2022-05-11] MEDS ORDERED: MAGNESIUM 1GM/D5W - 1 GM/100 ML IVPB IVPB ONE (19:40)
[2022-05-11 20:21] VITALS: TEMP 98.3
[2022-05-11] MEDS ORDERED: ALBUMIN HUMAN 5% 250 ML IV SOLUTION IV ONE (21:11)
[2022-05-11] MEDS ORDERED: HYDROCORTISONE SOD SUCCINATE 100 MG/2 ML VIAL IVPUSH ONE (22:17)
[2022-05-11] MEDS ORDERED: HYDROCORTISONE SOD SUCCINATE 100 MG/2 ML VIAL ONE (22:32)
[2022-05-12] MEDS ORDERED: PIPERACILLIN/TAZOB 3.375 GM 3.375 GM in DEXTROSE 5%-WATER - 50 ML IVPB ONE (00:05)
[2022-05-12] MEDS ORDERED: PIPERACILLIN/TAZOB 3.375 GM 3.375 GM/50 ML BAG IVPB ONE (00:08)
[2022-05-12 00:33] VITALS: BP 110/65; PULSE 115; RESP 18
== END 2022-05-12 00:44 | disposition short-term general hospital (02) ==
LOC: JER 13:33
PROC: 3E033GC Introduction of Other Therapeutic Substance into Peripheral Vein, Percutaneous Approach (ICD-10-PCS; principal; 2022-05-11)
PROC: 3E033GC Introduction of Other Therapeutic Substance into Peripheral Vein, Percutaneous Approach (ICD-10-PCS; 2022-05-11)
PROC: 3E033GC Introduction of Other Therapeutic Substance into Peripheral Vein, Percutaneous Approach (ICD-10-PCS; 2022-05-11)
PROC: 3E033NZ Introduction of Analgesics, Hypnotics, Sedatives into Peripheral Vein, Percutaneous Approach (ICD-10-PCS; 2022-05-11)
PROC: 3E033NZ Introduction of Analgesics, Hypnotics, Sedatives into Peripheral Vein, Percutaneous Approach (ICD-10-PCS; 2022-05-11)
PROC: 3E033NZ Introduction of Analgesics, Hypnotics, Sedatives into Peripheral Vein, Percutaneous Approach (ICD-10-PCS; 2022-05-11)
PROC: 3E033GC Introduction of Other Therapeutic Substance into Peripheral Vein, Percutaneous Approach (ICD-10-PCS; 2022-05-11)
PROC: 3E033GC Introduction of Other Therapeutic Substance into Peripheral Vein, Percutaneous Approach (ICD-10-PCS; 2022-05-11)
PROC: 3E03329 Introduction of Other Anti-infective into Peripheral Vein, Percutaneous Approach (ICD-10-PCS; 2022-05-11)
PROC: 3E033GC Introduction of Other Therapeutic Substance into Peripheral Vein, Percutaneous Approach (ICD-10-PCS; 2022-05-11)
DX: K70.10 Alcoholic hepatitis without ascites (principal)
CPT/HCPCS: 0241U-QW; 36415; 71045-TC-FY; 74176-TC; 76705-TC; 80053; 82140; 82248; 82803; 83690; 84443; 84484; 84702; 85025; 85610; 85730; 93005; 93010; 99285-25

== ENCOUNTER 2022-06-20 | Inpatient (IN) | payer OTHER ==
[2022-06-21 00:36] VITALS: BMI 57.8
[2022-06-21] MEDS ORDERED: guaiFENesin 200 MG/10 ML 10 ML UNIT-DOSE CUPS PO PRN (01:33)
[2022-06-21] MEDS ORDERED: DICYCLOMINE HCL 10 MG CAPSULE PO PRN (01:33)
[2022-06-21] MEDS ORDERED: ONDANSETRON *ODT* 4 MG TABLET SL PRN (01:33)
[2022-06-21] MEDS ORDERED: BISMUTH SUBSALICYLATE 524 MG/30 ML PO PRN (01:33)
[2022-06-21] MEDS ORDERED: P-EPHED 60MG/TRIPROLIDI 2.5MG TABLET PO PRN (01:33)
[2022-06-21] MEDS ORDERED: MAG HYDROX/AL HYDROX/SIMETH 30 ML UNIT-DOSE CUP PO PRN (01:33)
[2022-06-21] MEDS ORDERED: MAGNESIUM HYDROX 2400MG/30ML ORAL SUSPENSION 30 ML CUP PO PRN (01:33)
[2022-06-21] MEDS ORDERED: POLYETHYLENE GLYCOL (HEALTHYLAX) 3350 17 GM PACKET PO PRN (01:33)
[2022-06-21] MEDS ORDERED: MELATONIN 5 MG TABLETS PO PRN (01:33)
[2022-06-21] MEDS ORDERED: BENZOCAINE/MENTHOL (CHLORASEPTIC ) LOZENGE MM PRN (01:33)
[2022-06-21] MEDS ORDERED: IBUPROFEN 400 MG TABLET (FP) PO PRN (01:33)
[2022-06-21] MEDS ORDERED: LOPERAMIDE HCL 2 MG CAPSULE PO PRN (01:33)
[2022-06-21] MEDS ORDERED: LORazepam 1 MG TABLET PO PRN (01:35)
[2022-06-21] MEDS ORDERED: LORazepam 2 MG TABLET PO ONE ×2 (01:35→02:45)
[2022-06-21] MEDS ORDERED: ALBUTEROL SO4 HFA INHALER IH PRN (02:54)
[2022-06-21] MEDS: LORazepam 2 MG TABLET PO SCH ×4 (05:47→22:29)
[2022-06-21] MEDS: hydrOXYzine PAMOATE 25 MG CAPSULE (FP) PO PRN ×2 (05:48→10:24)
[2022-06-21] MEDS: PRENATAL VITAMINS W/ FOLIC ACID TABLET (FP) PO SCH (10:23)
[2022-06-21] MEDS: BUDESONIDE/FORMETEROL FUMARATE 80/4.5 mcg INHALER IH SCH ×2 (10:23→22:05)
[2022-06-21] MEDS: IBUPROFEN 600 MG TABLET (FP) PO PRN ×2 (10:24→22:07)
[2022-06-21] MEDS ORDERED: THIAMINE HCL 100 MG TABLET (FP) PO SCH (22:00)
[2022-06-22] MEDS: LORazepam 1 MG TABLET PO SCH ×2 (05:53→10:22)
[2022-06-22 08:41] VITALS: BP 104/69; PULSE 97; RESP 18; TEMP 97.5
[2022-06-22] MEDS: BUDESONIDE/FORMETEROL FUMARATE 80/4.5 mcg INHALER IH SCH (10:22)
[2022-06-22] MEDS: PRENATAL VITAMINS W/ FOLIC ACID TABLET (FP) PO SCH (10:22)
[2022-06-23] MEDS ORDERED: LORazepam 0.5 MG TABLET PO PRN
[2022-06-23] MEDS ORDERED: LORazepam 0.5 MG TABLET PO SCH (05:00)
[2022-06-24] MEDS ORDERED: LORazepam 0.5 MG TABLET PO ONE (05:00)
== END 2022-06-22 10:50 | disposition left against medical advice (07) | DRG 770 ==
LOC: YASAS → Y6N 06-21 01:45
PROVIDERS: ADMIT Allergy & Immunology; ATTEND Surgery
PROC: HZ2ZZZZ Detoxification Services for Substance Abuse Treatment (ICD-10-PCS; principal; 2022-06-21)
DX: F10.230 Alcohol dependence with withdrawal, uncomplicated (principal); F13.20 Sedative, hypnotic or anxiolytic dependence, uncomplicated; E03.9 Hypothyroidism, unspecified; J45.909 Unspecified asthma, uncomplicated; K70.10 Alcoholic hepatitis without ascites; R00.0 Tachycardia, unspecified; E66.01 Morbid (severe) obesity due to excess calories; Z68.43 Body mass index [BMI] 50.0-59.9, adult
CPT/HCPCS: 0241U-QW; 36415; 71046-TC-FY; 71275-TC; 80048; 80053; 81025; 83690; 83735; 84443; 84484; 84703; 85025; 85379; 85610; 85730; 86780; 86850; 86900; 86901; 93005; 93010; Q9967

== ENCOUNTER 2022-06-30 17:48 | Inpatient (IN) | payer OTHER ==
[2022-06-30 18:09] VITALS: BMI 36.3
[2022-06-30 19:18] LABS: BASO % 0.6 % (0-2.0); HEMOGLOBIN 12.2 GM/dL (10.7-15.3); LYMPH % 15.1 % (8-40); MCH 32.7 pg (25.7-33.7); MCHC 33.9 g/dl (32.0-36.0); MEAN CELL VOLUME 96.4 fl (80-96); MEAN PLT VOLUME 6.4 fl (7.5-11.1); MONO % 9.9 % (3.8-10.2); NEUT % 70.4 % (42.8-82.8); PLATELET COUNT 235 10^3/uL (134-434); RBC 3.73 M/mm3 (3.60-5.2); RDW 14.7 % (11.6-15.6); WHITE BLOOD COUNT 8.3 K/mm3 (4.0-10.0)
[2022-06-30 19:37] LABS: INR 1.35 (0.83-1.09); PROTHROMBIN TIME (PATIENT) 15.6 SEC (9.7-13.0)
[2022-06-30 19:39] LABS: ACTIVATED PTT 47.4 SECONDS (25.2-36.5)
[2022-06-30] MEDS ORDERED: SODIUM CHLORIDE 0.9% 500 ML INFUS.BAG IV ONE (19:40)
[2022-06-30 19:56] LABS: EPI CELLS >36 /uL (0-25.1); HYALINE CASTS 2 /uL (0-3.1); URINE APPEARANCE CLEAR; URINE BACTERIA 1673 /uL (0-1359); URINE BILIRUBIN 3+ (NEGATIVE); URINE COLOR DK YELLOW; URINE GLUCOSE (UA) NEGATIVE (NEGATIVE); URINE KETONE 4+ (NEGATIVE); URINE LEUK ESTERASE NEGATIVE (NEGATIVE); URINE NITRITE NEGATIVE (NEGATIVE); URINE PROTEIN 2+ (NEGATIVE); URINE RBC 59 /uL (0-23.9); URINE WBC 17 /uL (0-25.8)
[2022-06-30 19:57] LABS: CHLORIDE 96 mmol/L (98-107); SODIUM 131 mmol/L (136-145)
[2022-06-30 20:00] LABS: ANION GAP 20 MMOL/L (8-16); BLOOD UREA NITROGEN 6.9 mg/dL (7-18); CO2 15 mmol/L (21-32); GLUCOSE,RANDOM 71 mg/dL (74-106)
[2022-06-30 20:03] LABS: CREATININE 0.8 mg/dL (0.55-1.3); SGOT/AST 316 U/L (15-37); SGPT/ALT 153 U/L (13-61)
[2022-06-30 20:04] LABS: TOT PROT 9.2 g/dl (6.4-8.2)
[2022-06-30 20:05] LABS: BILIRUBIN,TOTAL 3.7 mg/dL (0.2-1)
[2022-06-30 20:06] LABS: ALK PHOS 193 U/L (45-117)
[2022-06-30 20:08] LABS: URINE AMPHETAMINES NEGATIVE (NEGATIVE)
[2022-06-30 20:09] LABS: COCAINE, UR NEGATIVE (NEGATIVE); OPIATES, URI NEGATIVE (NEGATIVE); PHENCYCLIDINE,URINE NEGATIVE (NEGATIVE); URINE BARBITURATES NEGATIVE (NEGATIVE)
[2022-06-30 20:10] LABS: METHADONE, UR NEGATIVE (NEGATIVE); URINE BENZODIAZEPINES POSITIVE (NEGATIVE)
[2022-06-30 20:11] LABS: ALBUMIN 4.4 g/dl (3.4-5.0)
[2022-06-30] MEDS ORDERED: LORazepam 2 MG TABLET PO ONE (20:12)
[2022-06-30] MEDS ORDERED: LORazepam 1 MG TABLET ONE (20:23)
[2022-06-30 20:39] LABS: VENOUS BASE EXCESS -12.5 mmol/L (-2-2); VENOUS PCO2 33.3 mmHg (38-52); VENOUS PH 7.236 (7.310-7.410)
[2022-06-30] MEDS ORDERED: THIAMINE HCL 200 MG/2 ML VIAL IVPB ONE (20:40)
[2022-06-30] MEDS ORDERED: THIAMINE HCL 200 MG/2 ML VIAL ONE (20:43)
[2022-06-30] MEDS ORDERED: DEXTROSE 50%-WATER - 25 GM/50 ML VIAL IVPUSH PRN (22:14)
[2022-06-30] MEDS ORDERED: DEXTROSE 50%-WATER 25 GM/50 ML DISP.SYRIN IVPUSH PRN (22:17)
[2022-06-30] MEDS ORDERED: LORazepam 1 MG TABLET PO PRN (22:45)
[2022-06-30] MEDS ORDERED: HEPARIN NA (PORCINE) 5,000 UNITS/ML 1ML VIAL SQ ONE (22:47)
[2022-06-30 23:02] LABS: MAGNESIUM 1.6 mg/dL (1.8-2.4)
[2022-06-30 23:05] LABS: PHOSPHOROUS 3.5 mg/dL (2.5-4.9)
[2022-06-30] MEDS ORDERED: MAGNESIUM SULF 50% (8.12 MEQ/2 ML-1 GM VIAL) IVPB ONE (23:29)
[2022-07-01] MEDS ORDERED: FOLIC ACID INJECTION - 1 MG, THIAMINE HCL 100 MG, MULTIVIT INJECTION ADULT 10 ML in SOD... IVPB ONE (00:30)
[2022-07-01] MEDS ORDERED: MAGNESIUM SULFATE IN WATER 2 GM/50 ML IVPB IVPB ONE (01:11)
[2022-07-01] MEDS ORDERED: LORazepam 1 MG TABLET ONE (01:11)
[2022-07-01] MEDS ORDERED: HEPARIN NA (PORCINE) 5,000 UNITS/ML 1ML VIAL ONE (01:11)
[2022-07-01] MEDS: DEXTROSE 5%-NORMAL SALINE 1,000 ML IV SCH (01:14)
[2022-07-01] MEDS: LORazepam 1 MG TABLET PO SCH ×5 (01:14→23:00)
[2022-07-01 01:47] LABS: LIPASE 128 U/L (73-393)
[2022-07-01] MEDS: INSULIN SLIDING SCALE (NOVOLOG) 1 VIAL SQ SCH ×3 (06:09→17:02)
[2022-07-01] MEDS: THIAMINE HCL 200 MG/2 ML VIAL IVPB SCH (09:22)
[2022-07-01] MEDS: FOLIC ACID 1 MG TABLET (FP) PO SCH (09:23)
[2022-07-01] MEDS: MULTIVITAMINS (DAILY MVI) TABLET (FP) PO SCH (09:23)
[2022-07-01 09:26] LABS: HEMATOCRIT 32.5 % (32.4-45.2); HEMOGLOBIN 10.9 GM/dL (10.7-15.3); MCH 32.1 pg (25.7-33.7); MCHC 33.5 g/dl (32.0-36.0); MEAN CELL VOLUME 95.9 fl (80-96); MEAN PLT VOLUME 6.7 fl (7.5-11.1); PLATELET COUNT 184 10^3/uL (134-434); RBC 3.39 M/mm3 (3.60-5.2); RDW 14.1 % (11.6-15.6); WHITE BLOOD COUNT 5.2 K/mm3 (4.0-10.0)
[2022-07-01 10:01] LABS: CALCIUM 8.6 mg/dL (8.5-10.1)
[2022-07-01 10:02] LABS: ALBUMIN 3.6 g/dl (3.4-5.0); BLOOD UREA NITROGEN 7.6 mg/dL (7-18); MAGNESIUM 2.2 mg/dL (1.8-2.4)
[2022-07-01 10:05] LABS: CREATININE 0.7 mg/dL (0.55-1.3); PHOSPHOROUS 3.1 mg/dL (2.5-4.9)
[2022-07-01 10:06] LABS: TOT PROT 7.7 g/dl (6.4-8.2)
[2022-07-01 10:07] LABS: BILIRUBIN,TOTAL 2.5 mg/dL (0.2-1)
[2022-07-02] MEDS: INSULIN SLIDING SCALE (NOVOLOG) 1 VIAL SQ SCH ×5 (01:47→21:07)
[2022-07-02] MEDS: DEXTROSE 5%-NORMAL SALINE 1,000 ML IV SCH (01:47)
[2022-07-02] MEDS: LORazepam 1 MG TABLET PO SCH ×4 (07:00→22:33)
[2022-07-02 08:32] LABS: BASO % 0.6 % (0-2.0); HEMATOCRIT 30.1 % (32.4-45.2); HEMOGLOBIN 10.1 GM/dL (10.7-15.3); LYMPH % 25.7 % (8-40); MCH 32.1 pg (25.7-33.7); MCHC 33.4 g/dl (32.0-36.0); MEAN CELL VOLUME 96.1 fl (80-96); MEAN PLT VOLUME 7.2 fl (7.5-11.1); MONO % 12.3 % (3.8-10.2); NEUT % 57.4 % (42.8-82.8); PLATELET COUNT 148 10^3/uL (134-434); RBC 3.13 M/mm3 (3.60-5.2); RDW 14.3 % (11.6-15.6); WHITE BLOOD COUNT 3.8 K/mm3 (4.0-10.0)
[2022-07-02 08:50] LABS: ALBUMIN 3.3 g/dl (3.4-5.0)
[2022-07-02 08:51] LABS: BLOOD UREA NITROGEN 5.6 mg/dL (7-18); CALCIUM 8.7 mg/dL (8.5-10.1); MAGNESIUM 1.6 mg/dL (1.8-2.4)
[2022-07-02 08:55] LABS: BILIRUBIN,TOTAL 1.7 mg/dL (0.2-1); CREATININE 0.6 mg/dL (0.55-1.3); PHOSPHOROUS 2.1 mg/dL (2.5-4.9); TOT PROT 6.9 g/dl (6.4-8.2)
[2022-07-02] MEDS ORDERED: POTASSIUM PHOSPHATE 30 MM in SODIUM CHLORIDE 500 ML IVPB ONE (09:08)
[2022-07-02] MEDS ORDERED: MAGNESIUM SULFATE IN WATER 2 GM/50 ML IVPB IVPB ONE ×2 (09:08→13:15)
[2022-07-02] MEDS: MULTIVITAMINS (DAILY MVI) TABLET (FP) PO SCH (09:41)
[2022-07-02] MEDS: THIAMINE HCL 200 MG/2 ML VIAL IVPB SCH (09:41)
[2022-07-02] MEDS: FOLIC ACID 1 MG TABLET (FP) PO SCH (09:41)
[2022-07-02] MEDS: ENOXAPARIN NA (PORCINE) 40 MG/0.4 ML DISP.SYRIN SQ SCH (09:41)
[2022-07-02 14:34] LABS: BILIRUBIN,DIRECT 1.2 mg/dL (0.0-0.2)
[2022-07-03] MEDS ORDERED: LORazepam 0.5 MG TABLET PO PRN
[2022-07-03] MEDS: LEVOTHYROXINE NA 25 MCG TABLET (FP) PO SCH (06:09)
[2022-07-03] MEDS: LORazepam 0.5 MG TABLET PO SCH ×4 (06:09→22:21)
[2022-07-03] MEDS: INSULIN SLIDING SCALE (NOVOLOG) 1 VIAL SQ SCH ×4 (06:27→22:21)
[2022-07-03 08:51] LABS: HEMATOCRIT 28.2 % (32.4-45.2); HEMOGLOBIN 9.4 GM/dL (10.7-15.3); MCH 32.2 pg (25.7-33.7); MCHC 33.5 g/dl (32.0-36.0); MEAN CELL VOLUME 96.1 fl (80-96); MEAN PLT VOLUME 6.9 fl (7.5-11.1); PLATELET COUNT 128 10^3/uL (134-434); RBC 2.93 M/mm3 (3.60-5.2); RDW 14.3 % (11.6-15.6); WHITE BLOOD COUNT 4.8 K/mm3 (4.0-10.0)
[2022-07-03 09:10] LABS: CALCIUM 8.7 mg/dL (8.5-10.1)
[2022-07-03 09:12] LABS: ALBUMIN 3.2 g/dl (3.4-5.0); BLOOD UREA NITROGEN 6.5 mg/dL (7-18); MAGNESIUM 1.8 mg/dL (1.8-2.4)
[2022-07-03 09:15] LABS: CREATININE 0.4 mg/dL (0.55-1.3); PHOSPHOROUS 3.1 mg/dL (2.5-4.9)
[2022-07-03 09:16] LABS: TOT PROT 6.8 g/dl (6.4-8.2)
[2022-07-03 09:17] LABS: BILIRUBIN,TOTAL 1.5 mg/dL (0.2-1)
[2022-07-03] MEDS: ENOXAPARIN NA (PORCINE) 40 MG/0.4 ML DISP.SYRIN SQ SCH (10:58)
[2022-07-03] MEDS: FOLIC ACID 1 MG TABLET (FP) PO SCH (10:59)
[2022-07-03] MEDS: THIAMINE HCL 200 MG/2 ML VIAL IVPB SCH (10:59)
[2022-07-03] MEDS: MULTIVITAMINS (DAILY MVI) TABLET (FP) PO SCH (10:59)
[2022-07-03 11:47] LABS: RETICULOCYTES 2.37 % (0.5-1.5)
[2022-07-03] MEDS ORDERED: IRON SUCROSE INJECTION 200 MG in SODIUM CHLORIDE 90 ML IVPB ONE (15:00)
[2022-07-03] MEDS ORDERED: INSULIN (NOVOLOG) ASPART 100 UNITS/ML 10ML VIAL ONE (22:10)
[2022-07-04] MEDS ORDERED: LORazepam 0.5 MG TABLET PO ONE (05:00)
[2022-07-04] MEDS: INSULIN SLIDING SCALE (NOVOLOG) 1 VIAL SQ SCH ×4 (06:09→23:05)
[2022-07-04] MEDS: LEVOTHYROXINE NA 25 MCG TABLET (FP) PO SCH (06:09)
[2022-07-04 08:01] LABS: HEMATOCRIT 32.7 % (32.4-45.2); HEMOGLOBIN 10.7 GM/dL (10.7-15.3); MCH 31.6 pg (25.7-33.7); MCHC 32.8 g/dl (32.0-36.0); MEAN CELL VOLUME 96.3 fl (80-96); MEAN PLT VOLUME 7.3 fl (7.5-11.1); PLATELET COUNT 173 10^3/uL (134-434); RBC 3.39 M/mm3 (3.60-5.2); RDW 14.4 % (11.6-15.6); WHITE BLOOD COUNT 6.4 K/mm3 (4.0-10.0)
[2022-07-04 08:17] LABS: INR 1.31 (0.83-1.09); PROTHROMBIN TIME (PATIENT) 15.2 SEC (9.7-13.0)
[2022-07-04 08:32] LABS: CALCIUM 9.3 mg/dL (8.5-10.1)
[2022-07-04 08:33] LABS: ALBUMIN 3.5 g/dl (3.4-5.0); BLOOD UREA NITROGEN 4.7 mg/dL (7-18); MAGNESIUM 1.7 mg/dL (1.8-2.4)
[2022-07-04 08:35] LABS: CREATININE 0.4 mg/dL (0.55-1.3)
[2022-07-04 08:37] LABS: BILIRUBIN,TOTAL 1.4 mg/dL (0.2-1); TOT PROT 7.2 g/dl (6.4-8.2)
[2022-07-04] MEDS ORDERED: IRON SUCROSE INJECTION 200 MG in SODIUM CHLORIDE 90 ML IVPB ONE (10:00)
[2022-07-04] MEDS: THIAMINE HCL 200 MG/2 ML VIAL IVPB SCH (10:08)
[2022-07-04] MEDS: FOLIC ACID 1 MG TABLET (FP) PO SCH (10:08)
[2022-07-04] MEDS: MULTIVITAMINS (DAILY MVI) TABLET (FP) PO SCH (10:08)
[2022-07-04] MEDS: ENOXAPARIN NA (PORCINE) 40 MG/0.4 ML DISP.SYRIN SQ SCH (10:08)
[2022-07-04] MEDS ORDERED: POTASSIUM CHLORIDE TABS 20 MEQ TABLET.ER (FP) PO ONE ×3 (16:32→21:15)
[2022-07-04] MEDS ORDERED: MAGNESIUM SULFATE IN WATER 2 GM/50 ML IVPB IVPB ONE (16:45)
[2022-07-04] MEDS ORDERED: MELATONIN 5 MG TABLETS PO ONE (22:54)
[2022-07-05] MEDS: LEVOTHYROXINE NA 25 MCG TABLET (FP) PO SCH (06:26)
[2022-07-05] MEDS: INSULIN SLIDING SCALE (NOVOLOG) 1 VIAL SQ SCH ×2 (06:26→12:00)
[2022-07-05 09:24] LABS: HEMATOCRIT 31.9 % (32.4-45.2); HEMOGLOBIN 10.6 GM/dL (10.7-15.3); MCH 31.7 pg (25.7-33.7); MCHC 33.1 g/dl (32.0-36.0); MEAN CELL VOLUME 95.8 fl (80-96); MEAN PLT VOLUME 7.6 fl (7.5-11.1); PLATELET COUNT 209 10^3/uL (134-434); RBC 3.33 M/mm3 (3.60-5.2); RDW 14.3 % (11.6-15.6); WHITE BLOOD COUNT 8.2 K/mm3 (4.0-10.0)
[2022-07-05 09:29] LABS: INR 1.29 (0.83-1.09); PROTHROMBIN TIME (PATIENT) 14.9 SEC (9.7-13.0)
[2022-07-05 09:56] LABS: ALBUMIN 3.9 g/dl (3.4-5.0); BLOOD UREA NITROGEN 7.1 mg/dL (7-18); CALCIUM 9.8 mg/dL (8.5-10.1)
[2022-07-05 09:59] LABS: CREATININE 0.4 mg/dL (0.55-1.3); PHOSPHOROUS 4.8 mg/dL (2.5-4.9)
[2022-07-05 10:00] LABS: BILIRUBIN,TOTAL 1.6 mg/dL (0.2-1); TOT PROT 7.7 g/dl (6.4-8.2)
[2022-07-05] MEDS ORDERED: IRON SUCROSE INJECTION 200 MG in SODIUM CHLORIDE 90 ML IVPB ONE (10:00)
[2022-07-05] MEDS: MULTIVITAMINS (DAILY MVI) TABLET (FP) PO SCH (10:01)
[2022-07-05] MEDS: FOLIC ACID 1 MG TABLET (FP) PO SCH (10:01)
[2022-07-05 14:13] VITALS: BP 113/74; PULSE 107; RESP 18; TEMP 98
[2022-07-06 23:17] LABS: IG G QN IMMUNOGLOBULIN 1223 mg/dL (586-1602); IGG SUBCLASS 1 672 mg/dL (248-810); IGG SUBCLASS 2 276 mg/dL (130-555); IGG SUBCLASS 3 44 mg/dL (15-102)
== END 2022-07-05 16:00 | disposition home or self-care (01) | DRG 775 ==
LOC: JER 17:48 → JERBED 20:38 → J7W 07-01 01:32
PROVIDERS: ADMIT Internal Medicine
PROC: 0DB68ZX Excision of Stomach, Via Natural or Artificial Opening Endoscopic, Diagnostic (ICD-10-PCS; principal; 2022-07-05 11:15)
DX: F10.230 Alcohol dependence with withdrawal, uncomplicated (principal); R00.0 Tachycardia, unspecified; K70.10 Alcoholic hepatitis without ascites; E03.9 Hypothyroidism, unspecified; D64.9 Anemia, unspecified; Z86.16 Personal history of COVID-19; J45.909 Unspecified asthma, uncomplicated; E66.9 Obesity, unspecified; Z68.36 Body mass index [BMI] 36.0-36.9, adult; E87.20 Acidosis, unspecified; E86.0 Dehydration; R74.01 Elevation of levels of liver transaminase levels; G47.33 Obstructive sleep apnea (adult) (pediatric); F41.9 Anxiety disorder, unspecified; K29.60 Other gastritis without bleeding; D50.9 Iron deficiency anemia, unspecified; R16.2 Hepatomegaly with splenomegaly, not elsewhere classified
CPT/HCPCS: 36415; 71046-TC-FY; 74178-TC; 76705-TC; 80053; 80307; 81003; 82010; 82140; 82248; 82550; 82553; 82607; 82728; 82746; 82784; 82787; 82803; 82962; 82977; 83036; 83516; 83540; 83550; 83605; 83615; 83690; 83735; 83883; 84100; 84436; 84439; 84443; 84703; 85025; 85027; 85045; 85610; 85730; 86038; 86376; 86704; 86705; 86707; 86708; 86803; 87086; 87340; 87350; 87517; 88305-TC; 93005; 93010; 99285-25; C9803-CS; J1644; J1756; U0003; U0005

== ENCOUNTER 2022-07-23 23:32 | Inpatient (IN) | payer OTHER ==
[2022-07-23 23:51] VITALS: BMI 36.7
[2022-07-24] MEDS ORDERED: chlordiazePOXIDE HCL 25 MG CAPSULE PO ONE (01:00)
[2022-07-24] MEDS ORDERED: chlordiazePOXIDE HCL 25 MG CAPSULE ONE ×2 (01:07→10:52)
[2022-07-24 01:11] LABS: BASO % 0.5 % (0-2.0); EOS % 1.9 % (0-4.5); HEMATOCRIT 35.8 % (32.4-45.2); HEMOGLOBIN 11.9 GM/dL (10.7-15.3); LYMPH % 15.3 % (8-40); MCH 29.6 pg (25.7-33.7); MCHC 33.1 g/dl (32.0-36.0); MEAN CELL VOLUME 89.4 fl (80-96); MEAN PLT VOLUME 6.1 fl (7.5-11.1); MONO % 4.9 % (3.8-10.2); NEUT % 77.4 % (42.8-82.8); PLATELET COUNT 208 10^3/uL (134-434); RBC 4.01 M/mm3 (3.60-5.2); RDW 13.9 % (11.6-15.6); WHITE BLOOD COUNT 8.6 K/mm3 (4.0-10.0)
[2022-07-24 01:54] LABS: CHLORIDE 105 mmol/L (98-107); SODIUM 139 mmol/L (136-145)
[2022-07-24 01:57] LABS: ALBUMIN 3.6 g/dl (3.4-5.0); ANION GAP 10 MMOL/L (8-16); CALCIUM 9.2 mg/dL (8.5-10.1); CO2 25 mmol/L (21-32)
[2022-07-24 01:58] LABS: BLOOD UREA NITROGEN 4.9 mg/dL (7-18); GLUCOSE,RANDOM 85 mg/dL (74-106)
[2022-07-24 01:59] LABS: SGPT/ALT 59 U/L (13-61)
[2022-07-24 02:00] LABS: CREATININE 0.6 mg/dL (0.55-1.3); SGOT/AST 81 U/L (15-37)
[2022-07-24 02:02] LABS: BILIRUBIN,TOTAL 1.8 mg/dL (0.2-1); TOT PROT 7.9 g/dl (6.4-8.2)
[2022-07-24 02:03] LABS: ALK PHOS 213 U/L (45-117)
[2022-07-24] MEDS ORDERED: POTASSIUM CHLORIDE ORAL LIQUID 20 MEQ/15 ML PO ONE (04:46)
[2022-07-24] MEDS ORDERED: ALBUTEROL SO4 HFA INHALER IH SCH (05:00)
[2022-07-24] MEDS ORDERED: POTASSIUM CHLORIDE ORAL LIQUID 20 MEQ/15 ML ONE (05:01)
[2022-07-24] MEDS ORDERED: chlordiazePOXIDE HCL 25 MG CAPSULE PO PRN (05:26)
[2022-07-24] MEDS ORDERED: LORazepam 2 MG TABLET PO PRN (05:30)
[2022-07-24] MEDS ORDERED: GABAPENTIN 300 MG CAPSULE ONE (05:32)
[2022-07-24] MEDS: chlordiazePOXIDE HCL 25 MG CAPSULE PO SCH ×2 (05:36→11:07)
[2022-07-24] MEDS ORDERED: GABAPENTIN 100 MG CAPSULE PO SCH (06:00)
[2022-07-24] MEDS ORDERED: LORazepam 1 MG TABLET PO PRN (06:03)
[2022-07-24] MEDS ORDERED: ALBUTEROL SO4 HFA INHALER IH PRN (06:06)
[2022-07-24] MEDS ORDERED: LEVOTHYROXINE NA 25 MCG TABLET (FP) PO SCH (07:00)
[2022-07-24 07:08] LABS: BASO % 0.5 % (0-2.0); EOS % 2.9 % (0-4.5); HEMATOCRIT 32.9 % (32.4-45.2); LYMPH % 17.4 % (8-40); MCH 30.6 pg (25.7-33.7); MCHC 33.6 g/dl (32.0-36.0); MEAN CELL VOLUME 91.1 fl (80-96); MEAN PLT VOLUME 6.6 fl (7.5-11.1); MONO % 5.9 % (3.8-10.2); NEUT % 73.3 % (42.8-82.8); PLATELET COUNT 185 10^3/uL (134-434); RBC 3.61 M/mm3 (3.60-5.2); RDW 13.8 % (11.6-15.6)
[2022-07-24 07:18] LABS: ALBUMIN 3.3 g/dl (3.4-5.0); MAGNESIUM 1.2 mg/dL (1.8-2.4)
[2022-07-24 07:20] LABS: CREATININE 0.7 mg/dL (0.55-1.3)
[2022-07-24 07:22] LABS: BILIRUBIN,TOTAL 1.7 mg/dL (0.2-1); TOT PROT 7.1 g/dl (6.4-8.2)
[2022-07-24] MEDS ORDERED: LEVOTHYROXINE NA 25 MCG TABLET (FP) ONE (07:49)
[2022-07-24] MEDS ORDERED: ENOXAPARIN NA (PORCINE) 40 MG/0.4 ML DISP.SYRIN SQ SCH (10:00)
[2022-07-24] MEDS ORDERED: FOLIC ACID 1 MG TABLET (FP) PO SCH (10:00)
[2022-07-24] MEDS ORDERED: FOLIC ACID 1 MG TABLET (FP) ONE (10:53)
[2022-07-24] MEDS ORDERED: ENOXAPARIN NA (PORCINE) 40 MG/0.4 ML DISP.SYRIN SQ ONE (10:53)
[2022-07-24 13:21] VITALS: BP 133/94; PULSE 95; RESP 18; TEMP 98.4
[2022-07-24 14:17] LABS: EPI CELLS >36 /uL (0-25.1); HYALINE CASTS 3 /uL (0-3.1); URINE APPEARANCE CLEAR; URINE BILIRUBIN 2+ (NEGATIVE); URINE COLOR DK YELLOW; URINE GLUCOSE (UA) NEGATIVE (NEGATIVE); URINE KETONE TRACE (NEGATIVE); URINE LEUK ESTERASE 1+ (NEGATIVE); URINE NITRITE POSITIVE (NEGATIVE); URINE PROTEIN 1+ (NEGATIVE); URINE RBC 15 /uL (0-23.9); URINE WBC 59 /uL (0-25.8)
[2022-07-24 14:37] LABS: COCAINE, UR NEGATIVE (NEGATIVE); METHADONE, UR NEGATIVE (NEGATIVE); OPIATES, URI NEGATIVE (NEGATIVE); PHENCYCLIDINE,URINE NEGATIVE (NEGATIVE); URINE AMPHETAMINES NEGATIVE (NEGATIVE)
[2022-07-24 14:39] LABS: URINE BARBITURATES NEGATIVE (NEGATIVE); URINE BENZODIAZEPINES POSITIVE (NEGATIVE)
[2022-07-24 14:47] LABS: URINE BACTERIA 619.7 /uL (0-1359)
[2022-07-25] MEDS ORDERED: chlordiazePOXIDE HCL 25 MG CAPSULE PO SCH (05:00)
[2022-07-26] MEDS ORDERED: chlordiazePOXIDE HCL 10 MG CAPSULE PO PRN
[2022-07-26] MEDS ORDERED: chlordiazePOXIDE HCL 10 MG CAPSULE PO SCH (05:00)
[2022-07-27] MEDS ORDERED: chlordiazePOXIDE HCL 10 MG CAPSULE PO SCH (05:00)
[2022-07-28] MEDS ORDERED: chlordiazePOXIDE HCL 10 MG CAPSULE PO ONE (05:00)
== END 2022-07-24 13:24 | disposition home or self-care (01) | DRG 775 ==
LOC: JER 23:32 → JERBED 07-24 03:42
PROVIDERS: ADMIT Internal Medicine; ATTEND Internal Medicine
PROC: HZ2ZZZZ Detoxification Services for Substance Abuse Treatment (ICD-10-PCS; principal; 2022-07-23)
DX: F10.239 Alcohol dependence with withdrawal, unspecified (principal); E03.9 Hypothyroidism, unspecified; F17.210 Nicotine dependence, cigarettes, uncomplicated; R45.851 Suicidal ideations; E66.9 Obesity, unspecified; Z68.36 Body mass index [BMI] 36.0-36.9, adult; R16.0 Hepatomegaly, not elsewhere classified; J45.909 Unspecified asthma, uncomplicated; R06.89 Other abnormalities of breathing
CPT/HCPCS: 0241U-QW; 36415; 80053; 80307; 81003; 83735; 84100; 84703; 85025; 87086; 93005; 93010; 99285-25

== ENCOUNTER 2022-11-04 22:29 | Emergency (ER) | payer OTHER ==
[2022-11-04 22:39] VITALS: BMI 33.3
[2022-11-04 23:22] LABS: BASO % 0.8 % (0-2.0); EOS % 4.8 % (0-4.5); HEMATOCRIT 39.6 % (32.4-45.2); HEMOGLOBIN 13.3 GM/dL (10.7-15.3); LYMPH % 13.4 % (8-40); MCH 28.2 pg (25.7-33.7); MCHC 33.7 g/dl (32.0-36.0); MEAN CELL VOLUME 83.5 fl (80-96); MEAN PLT VOLUME 6.9 fl (7.5-11.1); MONO % 6.4 % (3.8-10.2); NEUT % 74.6 % (42.8-82.8); PLATELET COUNT 272 10^3/uL (134-434); RBC 4.73 M/mm3 (3.60-5.2); RDW 14.2 % (11.6-15.6); WHITE BLOOD COUNT 12.9 K/mm3 (4.0-10.0)
[2022-11-04 23:28] LABS: INR 1.19 (0.83-1.09); PROTHROMBIN TIME (PATIENT) 13.8 SEC (9.7-13.0)
[2022-11-04 23:30] LABS: ACTIVATED PTT 37.9 SECONDS (25.2-36.5)
[2022-11-04 23:39] LABS: CHLORIDE 103 mmol/L (98-107); POTASSIUM 4.3 mmol/L (3.5-5.1); SODIUM 138 mmol/L (136-145)
[2022-11-04 23:40] LABS: CALCIUM 9.7 mg/dL (8.5-10.1)
[2022-11-04 23:41] LABS: ALBUMIN 3.8 g/dl (3.4-5.0); ANION GAP 9 MMOL/L (8-16); BLOOD UREA NITROGEN 13.5 mg/dL (7-18); CO2 26 mmol/L (21-32); GLUCOSE,RANDOM 96 mg/dL (74-106)
[2022-11-04 23:44] LABS: CREATININE 0.7 mg/dL (0.55-1.3); SGOT/AST 45 U/L (15-37); SGPT/ALT 58 U/L (13-61)
[2022-11-04] MEDS ORDERED: ACETAMINOPHEN 325 MG TABLET (FP) ONE (23:45)
[2022-11-04 23:46] LABS: BILIRUBIN,TOTAL 1.2 mg/dL (0.2-1); TOT PROT 7.4 g/dl (6.4-8.2)
[2022-11-04 23:47] LABS: ALK PHOS 104 U/L (45-117)
[2022-11-05] MEDS ORDERED: DEXAMETHASONE SOD PHOSPHATE 10 MG/1 ML VIAL IM ONE (00:06)
[2022-11-05] MEDS ORDERED: DEXAMETHASONE SOD PHOSPHATE 10 MG/1 ML VIAL ONE (00:07)
[2022-11-05] MEDS: ALBUTEROL SO4 2.5/IPRATROPIUM 0.5 INH SOL 3 ML VIAL.NEB. NEB SCH ×3 (00:15→00:49)
[2022-11-05] MEDS ORDERED: ACETAMINOPHEN 500 MG TABLET (FP) PO ONE ×2 (00:25→10:48)
[2022-11-05 09:35] VITALS: BP 121/88; PULSE 63; RESP 18; TEMP 97.6
[2022-11-05] MEDS ORDERED: ACETAMINOPHEN 325 MG TABLET (FP) ONE (10:49)
[2022-11-05 11:17] LABS: PH,URINE 6.5 (5.0-8.0); URINE APPEARANCE CLEAR; URINE BILIRUBIN NEGATIVE (NEGATIVE); URINE COLOR YELLOW; URINE GLUCOSE (UA) NEGATIVE (NEGATIVE); URINE KETONE TRACE (NEGATIVE); URINE LEUK ESTERASE NEGATIVE (NEGATIVE); URINE NITRITE NEGATIVE (NEGATIVE); URINE PROTEIN NEGATIVE (NEGATIVE)
[2022-11-05 11:31] LABS: METHADONE, UR NEGATIVE (NEGATIVE)
[2022-11-05 11:32] LABS: COCAINE, UR NEGATIVE (NEGATIVE); OPIATES, URI NEGATIVE (NEGATIVE); PHENCYCLIDINE,URINE NEGATIVE (NEGATIVE); URINE BARBITURATES NEGATIVE (NEGATIVE); URINE BENZODIAZEPINES NEGATIVE (NEGATIVE)
[2022-11-05 11:35] LABS: URINE AMPHETAMINES NEGATIVE (NEGATIVE)
== END 2022-11-05 11:56 | disposition home or self-care (01) ==
LOC: JER 22:29
PROC: 3E023GC Introduction of Other Therapeutic Substance into Muscle, Percutaneous Approach (ICD-10-PCS; principal; 2022-11-05)
PROC: 3E0F7GC Introduction of Other Therapeutic Substance into Respiratory Tract, Via Natural or Artificial Opening (ICD-10-PCS; 2022-11-05)
DX: R45.851 Suicidal ideations (principal)
CPT/HCPCS: 36415; 71045-TC-FY; 80053; 80307; 81003; 84443; 84484; 84703; 85025; 85610; 85730; 87086; 93005; 93010; 99285-25; J1100

== ENCOUNTER 2023-09-11 17:22 | Inpatient (IN) | payer OTHER ==
[2023-09-11] MEDS ORDERED: diazePAM CARPU-JECT 10 MG/2 ML DISP.SYRIN ONE ×2 (18:50→21:41)
[2023-09-11] MEDS: diazePAM CARPU-JECT 10 MG/2 ML DISP.SYRIN IVPUSH ONE ×2 (19:00→22:00)
[2023-09-11] MEDS: SODIUM CHLORIDE 1,000 ML IV STA (19:00)
[2023-09-11 19:04] LABS: HEMATOCRIT 38.1 % (32.4-45.2); HEMOGLOBIN 12.8 GM/dL (10.7-15.3); INR 1.43 (0.83-1.09); MCH 30.9 pg (25.7-33.7); MCHC 33.5 g/dl (32.0-36.0); MEAN CELL VOLUME 92.2 fl (80-96); PLATELET COUNT 102 10^3/uL (134-434); PROTHROMBIN TIME (PATIENT) 16.5 SEC (9.7-13.0); RBC 4.13 M/mm3 (3.60-5.2); RDW 19.3 % (11.6-15.6)
[2023-09-11 19:07] LABS: ACTIVATED PTT 46.7 SECONDS (25.2-36.5)
[2023-09-11 19:12] LABS: POTASSIUM 3.4 mmol/L (3.5-5.1)
[2023-09-11 19:14] LABS: BLOOD UREA NITROGEN 4.1 mg/dL (7-18); CALCIUM 7.8 mg/dL (8.5-10.1)
[2023-09-11 19:15] LABS: ALBUMIN 2.7 g/dl (3.4-5.0)
[2023-09-11 19:17] LABS: CREATININE 0.6 mg/dL (0.55-1.3)
[2023-09-11 19:19] LABS: BILIRUBIN,TOTAL 10.8 mg/dL (0.2-1); TOT PROT 6.2 g/dl (6.4-8.2)
[2023-09-11 19:20] LABS: BILIRUBIN,DIRECT 8.5 mg/dL (0.0-0.2)
[2023-09-11 19:48] LABS: ANISOCYTOSIS 1+; MACROCYTOSIS 1+
[2023-09-11 19:57] LABS: LACTIC ACID 4.4 mmol/L (0.4-2.0)
[2023-09-11] MEDS ORDERED: MAGNESIUM SULFATE IN WATER 2 GM/50 ML IVPB IVPB ONE (19:58)
[2023-09-11] MEDS: MAGNESIUM SULF 50% (8.12 MEQ/2 ML-1 GM VIAL) IVPB ONE (20:00)
[2023-09-11 20:45] LABS: PHOSPHOROUS 1.4 mg/dL (2.5-4.9)
[2023-09-11] MEDS ORDERED: POTASSIUM CHLORIDE ORAL LIQUID 20 MEQ/15 ML ONE (21:12)
[2023-09-11 21:22] LABS: LACTIC ACID 3.3 mmol/L (0.4-2.0)
[2023-09-11] MEDS: POTASSIUM CHLORIDE ORAL LIQUID 20 MEQ/15 ML PO ONE (21:27)
[2023-09-11] MEDS: FOLIC ACID INJECTION - 1 MG, THIAMINE HCL 100 MG, MULTIVIT INJECTION ADULT 10 ML in SOD... IVPB ONE (21:27)
[2023-09-11] MEDS ORDERED: NAPH,MB-DB/K PH,MBDB POWDER PACKET ONE (21:41)
[2023-09-11] MEDS: NAPH,MB-DB/K PH,MBDB POWDER PACKET PO ONE (22:34)
[2023-09-12 00:45] VITALS: BMI 38.2
[2023-09-12] MEDS: LORazepam 1 MG TABLET PO SCH ×2 (03:24→12:13)
[2023-09-12] MEDS: THIAMINE HCL 200 MG/2 ML VIAL IVPB SCH (06:51)
[2023-09-12 07:24] LABS: CHLORIDE 99 mmol/L (98-107); POTASSIUM 3.7 mmol/L (3.5-5.1); SODIUM 133 mmol/L (136-145)
[2023-09-12 07:27] LABS: HEMATOCRIT 32.7 % (32.4-45.2); HEMOGLOBIN 11.2 GM/dL (10.7-15.3); MCH 31.4 pg (25.7-33.7); MCHC 34.3 g/dl (32.0-36.0); MEAN CELL VOLUME 91.6 fl (80-96); MEAN PLT VOLUME 8.1 fl (7.5-11.1); PLATELET COUNT 85 10^3/uL (134-434); RBC 3.57 M/mm3 (3.60-5.2); RDW 19.5 % (11.6-15.6); WHITE BLOOD COUNT 7.3 K/mm3 (4.0-10.0)
[2023-09-12 07:31] LABS: ALBUMIN 2.2 g/dl (3.4-5.0); ANION GAP 13 mmol/L (4-13); BLOOD UREA NITROGEN 4.3 mg/dL (7-18); CO2 21 mmol/L (21-32); GLUCOSE,RANDOM 68 mg/dL (74-106); MAGNESIUM 1.2 mg/dL (1.8-2.4); SGPT/ALT 134 U/L (13-61)
[2023-09-12 07:32] LABS: PHOSPHOROUS 1.7 mg/dL (2.5-4.9)
[2023-09-12 07:33] LABS: CREATININE 0.7 mg/dL (0.55-1.3); SGOT/AST 359 U/L (15-37); TOT PROT 5.3 g/dl (6.4-8.2)
[2023-09-12 07:34] LABS: BILIRUBIN,TOTAL 11.3 mg/dL (0.2-1)
[2023-09-12 07:38] LABS: ALK PHOS 307 U/L (45-117); CALCIUM 6.9 mg/dL (8.5-10.1)
[2023-09-12 08:17] LABS: LACTIC ACID 5.8 mmol/L (0.4-2.0)
[2023-09-12] MEDS ORDERED: IBUPROFEN 400 MG TABLET (FP) PO PRN (08:24)
[2023-09-12] MEDS: NAPH,MB-DB/K PH,MBDB POWDER PACKET PO ONE (09:27)
[2023-09-12] MEDS: MAGNESIUM OXIDE 400 MG TABLET (FP) PO SCH (09:27)
[2023-09-12] MEDS: MAGNESIUM 2GM/50ML STERILE WATER IVPB IVPB ONE (09:27)
[2023-09-12] MEDS: DEXTROSE 5%-NORMAL SALINE 1,000 ML IV SCH (09:30)
[2023-09-12 10:13] LABS: INR 1.36 (0.83-1.09); PROTHROMBIN TIME (PATIENT) 15.2 SEC (9.7-13.0)
[2023-09-13] MEDS: LEVOTHYROXINE NA 25 MCG TABLET (FP) PO SCH (06:05)
[2023-09-13 07:01] LABS: INR 1.36 (0.83-1.09); PROTHROMBIN TIME (PATIENT) 15.2 SEC (9.7-13.0)
[2023-09-13 07:03] LABS: CHLORIDE 102 mmol/L (98-107); POTASSIUM 3.1 mmol/L (3.5-5.1); SODIUM 133 mmol/L (136-145)
[2023-09-13 07:09] LABS: ANION GAP 6 mmol/L (4-13); BLOOD UREA NITROGEN 3.4 mg/dL (7-18); CO2 25 mmol/L (21-32); GLUCOSE,RANDOM 81 mg/dL (74-106)
[2023-09-13 07:10] LABS: MAGNESIUM 1.6 mg/dL (1.8-2.4)
[2023-09-13 07:12] LABS: CREATININE 0.6 mg/dL (0.55-1.3); SGOT/AST 279 U/L (15-37); SGPT/ALT 112 U/L (13-61)
[2023-09-13 07:14] LABS: TOT PROT 4.8 g/dl (6.4-8.2)
[2023-09-13 07:15] LABS: ALK PHOS 320 U/L (45-117)
[2023-09-13 07:16] LABS: BILIRUBIN,TOTAL 12.3 mg/dL (0.2-1)
[2023-09-13 07:26] LABS: CALCIUM 6.5 mg/dL (8.5-10.1); PHOSPHOROUS 0.4 mg/dL (2.5-4.9)
[2023-09-13 07:39] LABS: HEMATOCRIT 31.1 % (32.4-45.2); HEMOGLOBIN 10.4 GM/dL (10.7-15.3); MCH 31.4 pg (25.7-33.7); MCHC 33.5 g/dl (32.0-36.0); MEAN CELL VOLUME 93.7 fl (80-96); MEAN PLT VOLUME 8.3 fl (7.5-11.1); PLATELET COUNT 104 10^3/uL (134-434); RBC 3.32 M/mm3 (3.60-5.2); RDW 19.4 % (11.6-15.6); WHITE BLOOD COUNT 7.8 K/mm3 (4.0-10.0)
[2023-09-13 09:07] LABS: ANISOCYTOSIS 1+; MACROCYTOSIS 0
[2023-09-13] MEDS: LORazepam 1 MG TABLET PO PRN (09:23)
[2023-09-13] MEDS: THIAMINE 100 MG TABLET PO SCH (09:23)
[2023-09-13] MEDS: NAPH,MB-DB/K PH,MBDB POWDER PACKET PO SCH (09:23)
[2023-09-13] MEDS: FOLIC ACID 1 MG TABLET (FP) PO SCH (09:23)
[2023-09-13] MEDS: POTASSIUM PHOSPHATE 30 MM in SODIUM CHLORIDE 500 ML IVPB ONE (10:07)
[2023-09-13 16:30] LABS: CHLORIDE 102 mmol/L (98-107); POTASSIUM 3.4 mmol/L (3.5-5.1); SODIUM 132 mmol/L (136-145)
[2023-09-13 16:33] LABS: ALBUMIN 1.9 g/dl (3.4-5.0); ANION GAP 5 mmol/L (4-13); CO2 25 mmol/L (21-32); GLUCOSE,RANDOM 112 mg/dL (74-106); MAGNESIUM 1.6 mg/dL (1.8-2.4)
[2023-09-13 16:35] LABS: CREATININE 0.7 mg/dL (0.55-1.3); SGOT/AST 229 U/L (15-37)
[2023-09-13 16:36] LABS: SGPT/ALT 105 U/L (13-61)
[2023-09-13 16:37] LABS: BILIRUBIN,TOTAL 13.6 mg/dL (0.2-1); TOT PROT 4.8 g/dl (6.4-8.2)
[2023-09-13 16:38] LABS: ALK PHOS 302 U/L (45-117)
[2023-09-13 16:41] LABS: BLOOD UREA NITROGEN 2.5 mg/dL (7-18); CALCIUM 6.5 mg/dL (8.5-10.1); PHOSPHOROUS 0.6 mg/dL (2.5-4.9)
[2023-09-13] MEDS: MAGNESIUM SULF 50% (8.12 MEQ/2 ML-1 GM VIAL) IVPB ONE (21:51)
[2023-09-13 23:01] LABS: PHOSPHOROUS 0.8 mg/dL (2.5-4.9)
[2023-09-14] MEDS: POTASSIUM PHOSPHATE 30 MM in SODIUM CHLORIDE 500 ML IVPB ONE (00:38)
[2023-09-14] MEDS: LORazepam 1 MG TABLET PO SCH (06:10)
[2023-09-14 08:17] LABS: HEMATOCRIT 29.3 % (32.4-45.2); MCH 32.3 pg (25.7-33.7); MCHC 34.2 g/dl (32.0-36.0); MEAN CELL VOLUME 94.3 fl (80-96); MEAN PLT VOLUME 7.9 fl (7.5-11.1); PLATELET COUNT 141 10^3/uL (134-434); RDW 18.8 % (11.6-15.6)
[2023-09-14 08:22] LABS: INR 1.48 (0.83-1.09); PROTHROMBIN TIME (PATIENT) 16.5 SEC (9.7-13.0)
[2023-09-14 08:35] LABS: CHLORIDE 106 mmol/L (98-107); POTASSIUM 3.7 mmol/L (3.5-5.1); SODIUM 137 mmol/L (136-145)
[2023-09-14 08:42] LABS: BLOOD UREA NITROGEN 3.1 mg/dL (7-18); GLUCOSE,RANDOM 69 mg/dL (74-106)
[2023-09-14 08:43] LABS: ALBUMIN 1.8 g/dl (3.4-5.0); ANION GAP 10 mmol/L (4-13); CO2 21 mmol/L (21-32)
[2023-09-14 08:44] LABS: PHOSPHOROUS 2.9 mg/dL (2.5-4.9)
[2023-09-14 08:45] LABS: SGOT/AST 193 U/L (15-37)
[2023-09-14 08:46] LABS: BILIRUBIN,DIRECT 12.3 mg/dL (0.0-0.2)
[2023-09-14 08:47] LABS: ALK PHOS 284 U/L (45-117); BILIRUBIN,TOTAL 15.7 mg/dL (0.2-1); CALCIUM 6.5 mg/dL (8.5-10.1); CREATININE 0.6 mg/dL (0.55-1.3); SGPT/ALT 95 U/L (13-61); TOT PROT 4.9 g/dl (6.4-8.2)
[2023-09-14 09:32] LABS: ANISOCYTOSIS 0; HELMET CELLS 0; HOWELL-JOLLY BODIES 0; MACROCYTOSIS 0; OVALOCYTE 0; ROULEAU 0; SICKELED CELLS 0; TARGET CELLS 0; TEAR DROP CELLS 0; TOXIC GRANULATION 0
[2023-09-15] MEDS: LORazepam 0.5 MG TABLET PO PRN (02:57)
[2023-09-15] MEDS: LORazepam 0.5 MG TABLET PO SCH (06:26)
[2023-09-15 07:17] LABS: CHLORIDE 104 mmol/L (98-107); POTASSIUM 3.6 mmol/L (3.5-5.1); SODIUM 133 mmol/L (136-145)
[2023-09-15 07:21] LABS: HEMOGLOBIN 9.8 GM/dL (10.7-15.3); MCH 31.5 pg (25.7-33.7); MCHC 32.7 g/dl (32.0-36.0); MEAN CELL VOLUME 96.3 fl (80-96); MEAN PLT VOLUME 7.4 fl (7.5-11.1); PLATELET COUNT 203 10^3/uL (134-434); RBC 3.12 M/mm3 (3.60-5.2); RDW 18.9 % (11.6-15.6)
[2023-09-15 07:25] LABS: ALBUMIN 1.8 g/dl (3.4-5.0); ANION GAP 6 mmol/L (4-13); CO2 24 mmol/L (21-32); GLUCOSE,RANDOM 73 mg/dL (74-106); MAGNESIUM 1.5 mg/dL (1.8-2.4)
[2023-09-15 07:28] LABS: CREATININE 0.6 mg/dL (0.55-1.3); SGPT/ALT 79 U/L (13-61)
[2023-09-15 07:29] LABS: SGOT/AST 145 U/L (15-37)
[2023-09-15 07:30] LABS: TOT PROT 4.7 g/dl (6.4-8.2)
[2023-09-15 08:09] LABS: ALK PHOS 244 U/L (45-117); BILIRUBIN,TOTAL 17.4 mg/dL (0.2-1); BLOOD UREA NITROGEN 2.7 mg/dL (7-18); CALCIUM 6.1 mg/dL (8.5-10.1); PHOSPHOROUS 0.6 mg/dL (2.5-4.9)
[2023-09-15] MEDS: POTASSIUM PHOSPHATE 30 MM in DEXTROSE 5%-WATER - 500 ML IVPB ONE (10:56)
[2023-09-15] MEDS: LORazepam 0.5 MG TABLET PO ONE (10:57)
[2023-09-15] MEDS: CEFTRIAXONE 1 GM in DEXTROSE 5%-WATER - 50 ML IVPB SCH (14:09)
[2023-09-15 15:16] LABS: EPI CELLS 9 /uL (0-25.1); HYALINE CASTS 2 /uL (0-3.1); PH,URINE 6.5 (5.0-8.0); URINE APPEARANCE TURBID; URINE BILIRUBIN 3+ (NEGATIVE); URINE COLOR ORANGE; URINE GLUCOSE (UA) NEGATIVE (NEGATIVE); URINE KETONE NEGATIVE (NEGATIVE); URINE LEUK ESTERASE 1+ (NEGATIVE); URINE NITRITE POSITIVE (NEGATIVE); URINE PROTEIN 1+ (NEGATIVE); URINE RBC 16 /uL (0-23.9); URINE UROBILINOGEN 0.2 mg/dL (0.2-1.0); URINE WBC 12 /uL (0-25.8)
[2023-09-15 15:40] LABS: URINE BACTERIA 38 /uL (0-1359); URINE CRYSTALS NONE SEEN /hpf
[2023-09-15 17:29] LABS: INR 1.68 (0.83-1.09); PROTHROMBIN TIME (PATIENT) 18.7 SEC (9.7-13.0)
[2023-09-16 07:10] LABS: INR 1.72 (0.83-1.09); PROTHROMBIN TIME (PATIENT) 19.1 SEC (9.7-13.0)
[2023-09-16 07:11] LABS: ACTIVATED PTT 50.5 SECONDS (25.2-36.5)
[2023-09-16 07:12] LABS: CHLORIDE 104 mmol/L (98-107); POTASSIUM 3.3 mmol/L (3.5-5.1); SODIUM 135 mmol/L (136-145)
[2023-09-16 07:18] LABS: ALBUMIN 1.8 g/dl (3.4-5.0); ANION GAP 10 mmol/L (4-13); BLOOD UREA NITROGEN 3.4 mg/dL (7-18); CO2 22 mmol/L (21-32); GLUCOSE,RANDOM 76 mg/dL (74-106); MAGNESIUM 1.4 mg/dL (1.8-2.4)
[2023-09-16 07:20] LABS: SGPT/ALT 64 U/L (13-61)
[2023-09-16 07:21] LABS: BILIRUBIN,DIRECT 15.4 mg/dL (0.0-0.2); CREATININE 0.6 mg/dL (0.55-1.3); SGOT/AST 114 U/L (15-37)
[2023-09-16 07:22] LABS: TOT PROT 4.7 g/dl (6.4-8.2)
[2023-09-16 07:30] LABS: HEMATOCRIT 27.7 % (32.4-45.2); HEMOGLOBIN 9.4 GM/dL (10.7-15.3); MCH 32.5 pg (25.7-33.7); MCHC 33.9 g/dl (32.0-36.0); MEAN CELL VOLUME 95.8 fl (80-96); MEAN PLT VOLUME 7.2 fl (7.5-11.1); PLATELET COUNT 221 10^3/uL (134-434); RBC 2.89 M/mm3 (3.60-5.2); RDW 19.3 % (11.6-15.6); WHITE BLOOD COUNT 16.3 K/mm3 (4.0-10.0)
[2023-09-16 07:33] LABS: ALK PHOS 211 U/L (45-117); BILIRUBIN,TOTAL 19.6 mg/dL (0.2-1); CALCIUM 6.7 mg/dL (8.5-10.1); PHOSPHOROUS 1.2 mg/dL (2.5-4.9)
[2023-09-16 08:37] LABS: ANISOCYTOSIS 1+; MACROCYTOSIS 1+
[2023-09-16] MEDS: MAGNESIUM 2GM/50ML STERILE WATER IVPB IVPB ONE (09:19)
[2023-09-16] MEDS: LORazepam 2 MG/ML SDV VIAL IVPUSH PRN (09:21)
[2023-09-16] MEDS: POTASSIUM PHOSPHATE 30 MM in SODIUM CHLORIDE 500 ML IVPB ONE (09:23)
[2023-09-16 14:43] LABS: CHLORIDE 104 mmol/L (98-107); POTASSIUM 3.2 mmol/L (3.5-5.1); SODIUM 134 mmol/L (136-145)
[2023-09-16 14:46] LABS: ANION GAP 7 mmol/L (4-13); CO2 23 mmol/L (21-32); GLUCOSE,RANDOM 94 mg/dL (74-106); MAGNESIUM 2.3 mg/dL (1.8-2.4)
[2023-09-16 14:47] LABS: ALBUMIN 1.8 g/dl (3.4-5.0)
[2023-09-16 14:49] LABS: CREATININE 0.6 mg/dL (0.55-1.3); PHOSPHOROUS 2.4 mg/dL (2.5-4.9); SGOT/AST 104 U/L (15-37); SGPT/ALT 61 U/L (13-61)
[2023-09-16 14:50] LABS: TOT PROT 4.6 g/dl (6.4-8.2)
[2023-09-16 14:52] LABS: ALK PHOS 214 U/L (45-117)
[2023-09-16 15:01] LABS: BILIRUBIN,TOTAL 19.7 mg/dL (0.2-1); BLOOD UREA NITROGEN 2.4 mg/dL (7-18); CALCIUM 6.5 mg/dL (8.5-10.1)
[2023-09-16 15:32] LABS: INR 1.51 (0.83-1.09); PROTHROMBIN TIME (PATIENT) 16.9 SEC (9.7-13.0)
[2023-09-16] MEDS ORDERED: POTASSIUM PHOSPHATE 30 MM in DEXTROSE 5%-WATER - 500 ML IVPB ONE (16:13)
[2023-09-17] MEDS: KETOROLAC TROMETHAMINE 15 MG/ML VIAL IVPUSH ONE (02:02)
[2023-09-17 07:26] LABS: HEMATOCRIT 28.5 % (32.4-45.2); HEMOGLOBIN 9.4 GM/dL (10.7-15.3); MCH 32.4 pg (25.7-33.7); MCHC 32.9 g/dl (32.0-36.0); MEAN CELL VOLUME 98.3 fl (80-96); MEAN PLT VOLUME 7.1 fl (7.5-11.1); PLATELET COUNT 244 10^3/uL (134-434); RDW 19.3 % (11.6-15.6); WHITE BLOOD COUNT 15.3 K/mm3 (4.0-10.0)
[2023-09-17 07:35] LABS: CHLORIDE 106 mmol/L (98-107); POTASSIUM 3.5 mmol/L (3.5-5.1); SODIUM 136 mmol/L (136-145)
[2023-09-17 07:49] LABS: ALBUMIN 1.8 g/dl (3.4-5.0); ANION GAP 9 mmol/L (4-13); CO2 22 mmol/L (21-32); GLUCOSE,RANDOM 73 mg/dL (74-106); MAGNESIUM 2.2 mg/dL (1.8-2.4)
[2023-09-17 07:52] LABS: CREATININE 0.6 mg/dL (0.55-1.3); SGOT/AST 92 U/L (15-37); SGPT/ALT 53 U/L (13-61)
[2023-09-17 07:53] LABS: TOT PROT 4.8 g/dl (6.4-8.2)
[2023-09-17 07:55] LABS: ALK PHOS 202 U/L (45-117); BILIRUBIN,TOTAL 20.6 mg/dL (0.2-1); CALCIUM 6.8 mg/dL (8.5-10.1); PHOSPHOROUS 1.1 mg/dL (2.5-4.9)
[2023-09-17] MEDS: POTASSIUM PHOSPHATE 30 MM in SODIUM CHLORIDE 500 ML IVPB ONE (09:16)
[2023-09-17 09:22] LABS: ANISOCYTOSIS 1+; MACROCYTOSIS 1+; TARGET CELLS 1+
[2023-09-17 09:55] LABS: INR 1.52 (0.83-1.09)
[2023-09-17] MEDS: THIAMINE 100 MG TABLET PO SCH (10:09)
[2023-09-17 10:16] LABS: CHLORIDE 106 mmol/L (98-107); POTASSIUM 3.5 mmol/L (3.5-5.1); SODIUM 137 mmol/L (136-145)
[2023-09-17 10:19] LABS: ALBUMIN 1.8 g/dl (3.4-5.0); ANION GAP 7 mmol/L (4-13); BLOOD UREA NITROGEN 3.5 mg/dL (7-18); CO2 24 mmol/L (21-32); GLUCOSE,RANDOM 77 mg/dL (74-106); MAGNESIUM 2.3 mg/dL (1.8-2.4)
[2023-09-17 10:21] LABS: SGPT/ALT 51 U/L (13-61)
[2023-09-17 10:22] LABS: CREATININE 0.6 mg/dL (0.55-1.3); PHOSPHOROUS 1.2 mg/dL (2.5-4.9); SGOT/AST 92 U/L (15-37)
[2023-09-17 10:23] LABS: TOT PROT 4.7 g/dl (6.4-8.2)
[2023-09-17 10:25] LABS: ALK PHOS 200 U/L (45-117)
[2023-09-17 10:29] LABS: BILIRUBIN,DIRECT 16.5 mg/dL (0.0-0.2); BILIRUBIN,TOTAL 21.3 mg/dL (0.2-1); CALCIUM 6.9 mg/dL (8.5-10.1)
[2023-09-17] MEDS: POTASSIUM PHOSPHATE 45 MM in SODIUM CHLORIDE 500 ML IVPB ONE (10:49)
[2023-09-17] MEDS: prednisoLONE SODIUM PHOSPHATE 15 MG/5 ML ORAL SOLN BOTTLE PO SCH (11:00)
[2023-09-17] MEDS: NAPH,MB-DB/K PH,MBDB POWDER PACKET PO SCH (13:27)
[2023-09-17 18:29] VITALS: BP 109/75; PULSE 87; TEMP 98.2
[2023-09-17 18:56] VITALS: RESP 18
== END 2023-09-17 19:28 | disposition short-term general hospital (02) | DRG 280 ==
LOC: JER 17:22 → JERBED 21:30 → J4W 09-12 00:12
PROVIDERS: ADMIT Internal Medicine; ATTEND Internal Medicine
DX: K70.10 Alcoholic hepatitis without ascites (principal); K70.9 Alcoholic liver disease, unspecified; E87.20 Acidosis, unspecified; E83.39 Other disorders of phosphorus metabolism; E83.51 Hypocalcemia; R16.0 Hepatomegaly, not elsewhere classified; E03.9 Hypothyroidism, unspecified; E66.9 Obesity, unspecified; E80.6 Other disorders of bilirubin metabolism; F10.239 Alcohol dependence with withdrawal, unspecified; F31.9 Bipolar disorder, unspecified; E87.6 Hypokalemia; Z68.38 Body mass index [BMI] 38.0-38.9, adult
CPT/HCPCS: 0241U-QW; 36415; 71046-TC-FY; 74178-TC; 74181-TC; 76705-TC; 80048; 80053; 80076; 80307; 81003; 82140; 82248; 82962; 83605; 83690; 83735; 84100; 84439; 84443; 84702; 84703; 85025; 85027; 85610; 85730; 87040; 87045; 87046; 87205; 87209; 87324; 87449; 93005; 93010; 93971-TC; 94010; 99291; Q9967